=== PATIENT | female | born 1940 | race Caucasian/White ===

== ENCOUNTER 2016-11-22 13:36 | Emergency (ER) | payer OTHER ==
[2016-11-22] MEDS ORDERED: SODIUM CHLORIDE 1,000 ML IV STA (13:47)
[2016-11-22] MEDS ORDERED: HEMOQUE TEST 1 EACH EACH ONE (14:01)
--- NOTE | 2016-11-22 14:07 | PDOC ---
[id number]XuGKPZGHMZKDOWPUK5NICMQxNMUOx3cOLKEvJcEAQAJqJ RsZQAAeJxztooJKMpPL0 dNaJdjQFgwSG6IHZuZpbhYroP3NuRQwohsAb0kMt3GbaFH1/ PVu9MQF6tRA22Lwo9GQUhMYVeHZFqePRZqJdB1NoF6TwIcMKi6HVChUASpIHMCdr8OFXHKKjEhOc3cDK SBVBoGIYRRk1N5h3HyYDJJySbjiK6Lj7dMY4foORF8vlNGhLW1EJOGILUteqzAbKCIObPJPBRUjMthrb 2ilQGYHwEA277wt6YJZwiKGwwu + 98gsNfFTEEcR0DLtbISHcrFEbU049jWTdpvbzaQyVjFClNFXNoR4LF7HESqJZawByzsXHYNSEJUJZQYC ORzTOpOp1VIRaudGhyHgMqS2jtIUyWp +QNOf2NOhr10vmLqsBmqQZYNWC5O4msTvHS5/o8oaRyZwdGWzoYDohkkM+ EtTecWlRFjseakm9jVvG1GEP8SF0FWnKUlGFxIusHKlUFcWGHZFcC1sWDFNBYu3f+zmxQj67y/ uLSGxA53uqFJsEAijs2tovVGyQ3X03hsrXSI6n6zazejj4aD3idezYkVlWG6MBiX4dp7tpNuXN5EEar7 j9T1AcD +LAqYcl5LHAM8u8HmVYIYEcnuZk3m1B+ncbDnzOmxkCMEw/U1xP6qUiAGfv3yBDqr0LS5bsz0UqQ3W2H +pclsQ+6UgNZJYIEElzJk4hcrwGT5I+ecxYYMloCk+aV29kOXwSOgdRq5pOJuEpMr+ w0fcTA7IhzwRsWzxUPCf66rjwOJ3X6XAgzeUY6fiMvGXqVoeZYHltZFbxyhIEjCjyBCyA2QHdqImpw6v CQpIIF0dK0xk9kl +maBJcS8N2cafftqWxQxvsulN6550WyhrgB/9cRF1AKOzHLlXyLob0T+ P9PyNP3sNyHnpSIvYwXIVV1TUEsyNAZLCqHVN2ICUaOVUzat2Cv/QzI9LKADTJeJBsUdImUM 11/22/16 14:10 Medical Decision Making - Medical Decision Making 11/22/16 14:06 A portion of this note was documented by scribe services under my direction. I have reviewed the details of the note, within reason, and agree with the documentation with the following case summary and management plan written by me. 76-year-old female history of diabetes sent in for evaluation of hyperglycemia. Rule out DKA, rule out infection. *DC/Admit/Observation/Transfer Diagnosis at time of Disposition: Diabetes mellitus Qualifiers: Diabetes mellitus type: type 1 Diabetes mellitus complication status: with hyperglycemia Qualified Code(s): E10.65 - Type 1 diabetes mellitus with hyperglycemia - Discharge Dispostion Disposition: HOME Condition at time of disposition: Stable - Referrals Referrals: Regine Pickard MD [Primary Care Provider] - - Patient Instructions Printed Discharge Instructions: DI for Hyperglycemia -- Adult Additional Instructions: Check fingerstick every 2 hours tonight before going to bed, if continue to rise return to emergency department All and make appointment to see before the weekend No sugar products, balanced healthy diet, with lots of fluids
--- NOTE | 2016-11-22 14:13 | PDOC ---
History of Present Illness - General Chief Complaint: Blood Sugar Problem Stated Complaint: Blood Sugar Problem Time Seen by Provider: 11/22/16 13:41 History Source: Patient, Family Exam Limitations: No Limitations - History of Present Illness Initial Comments: 11/22/16 14:08 Patient brought in by ambulance from office. went in today for her routine check, found to have a fingerstick of greater than 500. Was given 10 units of Humalog and swollen in the doctor's office. Sugar was rechecked and noted to be greater than 450 therefore given an additional 10 units of subcutaneous Humalog and swollen. Patient was then transported to this emergency department for further evaluation. Patient states when she is hyperglycemic generally becomes anxious but feels more tired currently. States has been afebrile although has suffered from a URI as has all of the rest of her family this past week. Has runny nose, and moist cough with minimal phlegm production. Patient suffers from COPD and chronic cardiac illness but denies worsening or exacerbation of her asthma/COPD and has not needed extra respiratory treatments. Patient denies chest pain or palpitations, no worsened shortness of breath. Has been using regular Robitussin copiously as stressed of family has been using wdez-ddi-aciozum cough medicines. Also states secondary to her antihypertensive medications that include diuretics has been more frequent with urination and including some incontinence however denies pain or burning and does not feel has a UTI. Bowels are working normally. Daughter is at bedside, has home health attendant that works with her most every day who states patient's behavior and health status other than high sugars is primarily her baseline Timing/Duration: getting worse Severity: moderate, severe Modifying Factors: improves with: medication Associated Symptoms: reports: malaise, weakness. denies: fever/chills, nausea/ vomiting Past History - Travel Traveled outside of the country in the last 30 days: No Close contact w/someone who was outside of country & ill: No - Past Medical History Allergies/Adverse Reactions: Allergies Allergy/AdvReac Type Severity Reaction Status Date / Time No Known Allergies Allergy Verified 11/22/16 13:54 Home Medications: Ambulatory Orders Albuterol Sulfate Inhaler - [Ventolin HFA Inhaler -] 1 - 2 inh PO Q4H PRN Aspirin 81 mg PO DAILY 09/24/13 Budesonide/Formeterol Fumarate [SYMBICORT 160/4.5mcg -] 2 inh PO BID 09/24/13 Ergocalciferol [Drisdol -] 50,000 unit PO Q7D@1000 09/24/13 Fenofibrate [Lipofen] 105 mg PO DAILY 09/24/13 Furosemide [Lasix -] 40 mg PO BID 09/24/13 Losartan Potassium [Cozaar -] 25 mg PO DAILY 09/24/13 Mometasone Furoate [Nasonex] 1 - 2 inh NS DAILY 09/24/13 Niacin [Niaspan] 750 mg PO DAILY 09/24/13 Rosuvastatin [Crestor -] 40 mg PO DAILY 09/24/13 Sitagliptin Phosphate [Januvia] 100 mg PO DAILY 09/24/13 Tiotropium [place] [Spiriva] 2 inh PO DAILY 09/24/13 Vitamin B Complex 1 each PO DAILY 09/24/13 Diltiazem Cd [Cardizem Cd -] 120 mg PO DAILY #30 cap.cd.24h 02/16/15 Albuterol Sulfate Inhaler - [Ventolin Hfa Inhaler -] 1 - 2 inh PO QID 11/22/16 Clopidogrel Bisulfate [Plavix -] 75 mg PO DAILY 11/22/16 Guaifenesin [Mucinex] 600 mg PO DAILY 11/22/16 Halobetasol Prop 0.05% Tp Crm [Ultravate (Nf)] 1 applic TP DAILY 11/22/16 Insulin Glargine,Hum.rec.anlog [Toulavonne Solostliudmila] 80 unit SQ HS 11/22/16 Insulin Lispro [Humalog] 0 unit SQ DAILY 11/22/16 Insulin NPH Hum/Reg Insulin Hm [Novolin 70-30 100 Unit/ml Vial] 60 unit SQ BID 11/22/16 Omeprazole/Sodium Bicarbonate [Zegerid 20mg (RX)] 1 each PO DAILY 11/22/16 Ranolazine [Ranexa -] 1,000 mg PO BID 11/22/16 Roflumilast [Daliresp] 500 mcg PO DAILY 11/22/16 Anemia: No Asthma: Yes Cancer: No Cardiac Disorders: Yes CVA: No COPD: Yes CHF: Yes Dementia: No Diabetes: Yes GI Disorders: Yes (GERD) Disorders: No HTN: Yes Hypercholesterolemia: Yes Liver Disease: No Seizures: No Thyroid Disease: No - Surgical History Abdominal Surgery: No Cardiac Surgery: Yes (4 CARDIAC STENTS) Cholecystectomy: Yes Lung Surgery: No Neurologic Surgery: No Orthopedic Surgery: No - Immunization History Immunization Up to Date: Yes - Psycho/Social/Smoking Cessation Hx Anxiety: No Suicidal Ideation: No Smoking History: Never smoked Have you smoked in the past 12 months: No Hx Alcohol Use: No Drug/Substance Use Hx: No Substance Use Type: None Hx Substance Use Treatment: No Review of Systems - Review of Systems Able to Perform ROS?: Yes Is the patient limited Kyrgyz proficient: Yes Constitutional: Yes: Symptoms Reported, See HPI, Malaise. No: Chills, Fever, Loss of Appetite HEENTM: Yes: See HPI. No: Symptoms Reported Respiratory: Yes: See HPI, SOB with Exertion. No: Symptoms reported, Cough, Shortness of Breath, Wheezing Cardiac (ROS): No: Symptoms Reported : Yes: See HPI. No: Symptoms Reported, Burning Integumentary: Yes: Symptoms Reported Neurological: Yes: Symptoms reported, See HPI, Headache. No: Numbness, Paresthesia Psychiatric: No: Anxiety All Other Systems: Reviewed and Negative *Physical Exam - Physical Exam General Appearance: Yes: Appropriately Dressed, Apparent Distress HEENT: positive: ANEESH, Normal ENT Inspection, TMs Normal, Pharynx Normal Neck: positive: Supple. negative: Tender, Lymphadenopathy (R), Lymphadenopathy (L) Respiratory/Chest: positive: Lungs Clear (but diminished bilaterally, worse on the left than the right with poor inspiratory effort). negative: Normal Breath Sounds Cardiovascular: positive: Regular Rhythm, Regular Rate Gastrointestinal/Abdominal: positive: Normal Bowel Sounds, Soft, Protuberent. negative: Tender, Distended, Guarding, Rebound, Tenderness Musculoskeletal: positive: Normal Inspection Extremity: positive: Normal Capillary Refill Integumentary: positive: Normal Color, Dry, Warm, Pale Neurologic: positive: chemist steroids II-XII NML intact, Fully Oriented, Alert, Normal Mood/ Affect, Normal Response, Motor Strength 5/5 (pleasant, cooperative,) ED Treatment Course - LABORATORY CBC & Chemistry Diagram: 11/22/16 14:10 11/22/16 14:10 - RADIOLOGY Radiology Studies Ordered: Category Date Time Status CHEST X-RAY PORTABLE* [RAD] Stat Radiology 11/22/16 14:06 Ordered Medical Decision Making - Medical Decision Making 11/22/16 14:13 Hyperglycemia, per EMS and medicated with 20 units of subcutaneous Humalog insulins at office. Will obtain labs, frequent fingersticks to monitor for drop 14:30 repeat fingerstick 483 15:30 2 repeat fingersticks descending, with RBS 386. 16:30 acetone negative, lactic acid negative, pH and chemistries, anion gap 9- other labs within normal limits other than random blood sugar elevated. Will complete fluid bolus of 500 mL recheck fingerstick and if all well will discharge patient home with follow-up with tomorrow. Daughter reports later that sister had given a large box of chocolates that mother had eaten a significant portion of. 11/23/16 17:15 11/23/16 17:15 *DC/Admit/Observation/Transfer Diagnosis at time of Disposition: Diabetes mellitus Qualifiers: Diabetes mellitus type: type 1 Diabetes mellitus complication status: with hyperglycemia Qualified Code(s): E10.65 - Type 1 diabetes mellitus with hyperglycemia - Discharge Dispostion Disposition: HOME Condition at time of disposition: Stable Admit: No - Referrals Referrals: Regine Pickard MD [Primary Care Provider] - - Patient Instructions Printed Discharge Instructions: DI for Hyperglycemia -- Adult Additional Instructions: Check fingerstick every 2 hours tonight before going to bed, if continue to rise return to emergency department All and make appointment to see before the weekend No sugar products, balanced healthy diet, with lots of fluids
[2016-11-22 14:17] VITALS: BMI 34.4
[2016-11-22 14:20] LABS: VENOUS PH 7.39 (7.32-7.42)
[2016-11-22 14:23] LABS: VENOUS BLOOD GAS HCO3 29.2 meq/L (19-25)
[2016-11-22 14:27] LABS: BASOPHIL 0.6 % (0-2.0); EOSINOPHIL 1.2 % (0-4.5); MCH 22.1 pg (25.7-33.7); MCHC 31.7 g/dl (32.0-36.0); MEAN CELL VOLUME 69.6 fl (80-96); MEAN PLT VOLUME 8.3 fl (7.5-11.1); NEUTROPHILS 54.9 % (42.8-82.8); PLATELET COUNT 193 K/MM3 (134-434); RDW 15.1 % (11.6-15.6); WHITE BLOOD COUNT 6.6 K/mm3 (4.0-10.0)
[2016-11-22 14:43] LABS: INR 1.1 (0.82-1.09); PROTHROMBIN TIME (PATIENT) 12.1 SEC (9.98-11.88)
[2016-11-22 14:46] LABS: ALBUMIN 3.3 g/dl (3.4-5.0); ANION GAP 9 (8-16); BILIRUBIN,TOTAL 0.5 mg/dL (0.2-1.0); CALCIUM 9.1 mg/dL (8.5-10.1); CO2 30 mmol/L (21-32); SGOT/AST 12 U/L (15-37); SGPT/ALT 22 U/L (12-78); TOT PROT 6.8 g/dl (6.4-8.2)
[2016-11-22 14:46] LABS: URINE APPEARANCE CLEAR; URINE BILIRUBIN NEGATIVE (NEGATIVE); URINE BLOOD NEGATIVE (NEGATIVE); URINE COLOR STRAW; URINE GLUCOSE (UA) 3+ (NEGATIVE); URINE KETONE NEGATIVE (NEGATIVE); URINE LEUK ESTERASE NEGATIVE (NEGATIVE); URINE NITRITE NEGATIVE (NEGATIVE); URINE PROTEIN NEGATIVE (NEGATIVE); URINE UROBILINOGEN NEGATIVE E.U./dl (0.2-1.0)
[2016-11-22 14:49] LABS: ALK PHOS 97 U/L (45-117); TROPONIN I < 0.02 ng/ml (0.00-0.05)
[2016-11-22 14:52] LABS: GLUCOSE,RANDOM 368 mg/dL (74-106)
[2016-11-22 17:04] VITALS: BP 106/60; PULSE 84; TEMP 98.3
--- NOTE | 2016-11-23 16:14 | EKG ---
Test Reason : Blood Pressure : / mmHG Vent. Rate : 083 BPM Atrial Rate : 083 BPM P-R Int : 172 ms QRS Dur : 080 ms QT Int : 364 ms P-R-T Axes : 048 018 053 degrees QTc Int : 427 ms NORMAL SINUS RHYTHM LOW VOLTAGE QRS BORDERLINE ECG WHEN COMPARED WITH ECG OF 14-FEB-2015 17:01, NO SIGNIFICANT CHANGE WAS FOUND Confirmed by HALLEY BACK MD ([id number]) on 11/23/2016 4:14:18 PM Referred By: Confirmed By:HALLEY BACK MD
== END 2016-11-22 17:05 | disposition home or self-care (01) ==
LOC: JER 13:36
PROC: 3E0337Z Introduction of Electrolytic and Water Balance Substance into Peripheral Vein, Percutaneous Approach (ICD-10-PCS; principal; 2016-11-22)
DX: E10.65 Type 1 diabetes mellitus with hyperglycemia (principal); J45.909 Unspecified asthma, uncomplicated; J44.9 Chronic obstructive pulmonary disease, unspecified; I50.9 Heart failure, unspecified; K21.9 Gastro-esophageal reflux disease without esophagitis; Z95.5 Presence of coronary angioplasty implant and graft; E78.00 Pure hypercholesterolemia, unspecified; I10 Essential (primary) hypertension; Z79.4 Long term (current) use of insulin; Z79.82 Long term (current) use of aspirin
CPT/HCPCS: 36415; 71010-TC; 80053; 81003; 82009; 82550; 82553; 82803; 83605; 83690; 84484; 85025; 85610; 87086; 93005; 93010; 96360; 99284-25

== ENCOUNTER 2017-10-13 08:33 | Inpatient (IN) | payer OTHER ==
[2017-10-13 08:43] VITALS: BMI 35.2
--- NOTE | 2017-10-13 09:15 | PDOC ---
History of Present Illness - General Chief Complaint: Respiratory Stated Complaint: RESPIRATORY Time Seen by Provider: 10/13/17 09:13 - History of Present Illness Initial Comments: 10/13/17 09:37 The patient is a 77 year old female with a history of COPD, Asthma, DM, HTN, CAD , AL s/p 3 stents who presents for evaluation of SOB. The patient is accompanied by family who assist in providing the history. They report a 2-3 day history of worsening SOB with associated non-productive cough prompting their presentation to the ED for evaluation. The also note some chills yesterday evening, but deny any fevers. The patient did receive her flu shot this year. They deny sick contacts, chest pain, abdominal pain, nausea, vomiting, or changes with urination or bowel movements. Past History - Past Medical History Allergies/Adverse Reactions: Allergies Allergy/AdvReac Type Severity Reaction Status Date / Time No Known Allergies Allergy Verified 10/13/17 08:43 Home Medications: Ambulatory Orders Albuterol Sulfate Inhaler - [Ventolin HFA Inhaler -] 1 - 2 inh PO Q4H PRN Aspirin 81 mg PO DAILY 09/24/13 Budesonide/Formeterol Fumarate [SYMBICORT 160/4.5mcg -] 2 inh PO BID 09/24/13 Ergocalciferol [Vitamin D2] 50,000 unit PO Q7D@1000 09/24/13 Fenofibrate [Lipofen] 105 mg PO DAILY 09/24/13 Furosemide [Lasix -] 40 mg PO BID 09/24/13 Losartan Potassium [Cozaar -] 25 mg PO DAILY 09/24/13 Mometasone Furoate [Nasonex] 1 - 2 inh NS DAILY 09/24/13 Niacin [Niaspan] 750 mg PO DAILY 09/24/13 Rosuvastatin [Crestor -] 40 mg PO DAILY 09/24/13 Sitagliptin Phosphate [Januvia] 100 mg PO DAILY 09/24/13 Tiotropium [place] [Spiriva] 2 inh PO DAILY 09/24/13 Diltiazem Cd [Cardizem Cd -] 120 mg PO DAILY #30 cap.cd.24h 02/16/15 Clopidogrel Bisulfate [Plavix -] 75 mg PO DAILY 11/22/16 Insulin Glargine,Hum.rec.anlog [[place]jeo Solostar] 80 unit SQ HS 11/22/16 Ranolazine [Ranexa -] 1,000 mg PO BID 11/22/16 Roflumilast [Daliresp] 500 mcg PO DAILY 11/22/16 Dulaglutide [Trulicity] 1.5 mg SQ WEEKLY 10/13/17 Guaifenesin [Mucinex] 600 mg PO BID 10/13/17 Metoprolol Succinate [Toprol Xl] 25 mg PO DAILY 10/13/17 Mirabegron [Myrbetriq] 50 mg PO DAILY 10/13/17 Anemia: No Asthma: Yes Cancer: No Cardiac Disorders: Yes CVA: No COPD: Yes CHF: Yes Dementia: No Diabetes: Yes GI Disorders: Yes (GERD) Disorders: No HTN: Yes Hypercholesterolemia: Yes Liver Disease: No Seizures: No Thyroid Disease: No - Surgical History Abdominal Surgery: No Cardiac Surgery: Yes (4 CARDIAC STENTS) Cholecystectomy: Yes Lung Surgery: No Neurologic Surgery: No Orthopedic Surgery: No - Immunization History Immunization Up to Date: Yes - Suicide/Smoking/Psychosocial Hx Smoking History: Never smoked Have you smoked in the past 12 months: No Hx Alcohol Use: No Drug/Substance Use Hx: No Substance Use Type: None Hx Substance Use Treatment: No Review of Systems - Review of Systems Comments:: 10/13/17 09:41 Constitutional: Body aches, chills. No fevers, fatigue, HEENT: No Rhinorrhea, nasal congestion, visual changes Cardiovascular: No chest pain, syncope, palpitations, lightheadedness Respiratory: SOB, cough. No Hemoptysis, Gastrointestinal: No Abdominal pain, Nausea, Vomiting, Constipation, Diarrhea, Melena Genitourinary: No Dysuria, Frequency, Urgency, Hesitancy, Hematuria, Flank pain Musculoskeletal: No Myalgia, arthralgia Skin: No rashes, bruising, pallor Neurologic: No Headache, Dizziness, Numbness, Weakness, or Tingling Psychiatric: No Hallucinations. No SI or HI *Physical Exam - Vital Signs Last Vital Signs Temp Pulse Resp BP Pulse Ox 98.3 F 103 H 20 122/63 99 10/13/17 08:40 10/13/17 08:40 10/13/17 08:40 10/13/17 08:40 10/13/17 08:40 - Physical Exam Comments: 10/13/17 09:42 General Appearance: Nourished. No Apparent Distress HEENT: EOMI, ANEESH. No Pharyngeal Erythema, Tonsillar Exudate, Tonsillar Erythema Neck: No Cervical Lymphadenopathy Respiratory/Chest: Distant breath sounds with expiratory wheezing noted on auscultation. No Crackles, Rales, Rhonchi, Cardiovascular: Regular Rhythm, Regular Rate. No Murmur, Gallops, Rubs Gastrointestinal/Abdominal: Normal Bowel Sounds, Soft. No Guarding, Rebound, Tenderness Musculoskeletal: No CVA Tenderness Extremity: Normal Capillary Refill Integumentary: Normal Color, Dry, Warm Neurologic: Fully Oriented, Alert, Normal Mood/Affect, Normal Response, ED Treatment Course - LABORATORY CBC & Chemistry Diagram: 10/13/17 09:30 10/13/17 09:30 Medical Decision Making - Medical Decision Making 10/13/17 09:43 The patient is a 77 year old female with a history of COPD, Asthma, DM, HTN, CAD , AL s/p 3 stents who presents for evaluation of SOB. Differential includes but is not limited to: Viral syndrome, COPD exacerbation, ACS, pneumonia, infectious, metabolic derangement. Given the patient's physical exam, it is likely her symptoms are due to a COPD exacerbation. However, given her cardiac history we will obtain a cbc, cmp, troponin, bnp, ekg, chest plain film to evaluate for other etiologies. We will treat with prednisone, duoneb, and azithromycin here in the Ed. We will continue to monitor and reassess. 10/13/17 13:29 CBC, cmp, troponin, bnp are unremarkable. Chest plain film and ct chest demonstrate some concerns for pulmonary congestion as read by our radiologist. The patient reports continued symptoms despite treatment here in the ED. We believe the patient requires observation admission for a copd exacerbation and further management. We discussed the case with Dr. Pickard who accepted the patient for admission. *DC/Admit/Observation/Transfer Diagnosis at time of Disposition: COPD exacerbation, Possible CHF - Discharge Dispostion Condition at time of disposition: Guarded Admit: Yes - Referrals Referrals: Esequiel Alexander MD [Primary Care Provider] - - Patient Instructions - Post Discharge Activity
[2017-10-13] MEDS ORDERED: ALBUTEROL SO4 2.5/IPRATROPIUM 0.5 INH SOL 3 ML VIAL.NEB. NEB ONE ×4 (09:23→20:31)
[2017-10-13] MEDS ORDERED: predniSONE 20 MG TABLET (UD) PO ONE (09:31)
[2017-10-13] MEDS ORDERED: AZITHROMYCIN 500 MG TABLET PO ONE (09:32)
[2017-10-13 09:43] LABS: ADD RBC MORPHOLOGY YES; BASO % 0.5 % (0-2.0); EOS % 2.5 % (0-4.5); HEMATOCRIT 39.7 % (32.4-45.2); HEMOGLOBIN 12.4 GM/dL (10.7-15.3); LYMPH % 17.9 % (8-40); MCH 21.5 pg (25.7-33.7); MCHC 31.2 g/dl (32.0-36.0); MEAN CELL VOLUME 68.8 fl (80-96); MEAN PLT VOLUME 7.9 fl (7.5-11.1); MONO % 14.6 % (3.8-10.2); NEUT % 64.5 % (42.8-82.8); PLATELET COUNT 225 K/MM3 (134-434); RBC 5.78 M/mm3 (3.60-5.2); RDW 15.6 % (11.6-15.6); WHITE BLOOD COUNT 6.8 K/mm3 (4.0-10.0)
[2017-10-13] MEDS ORDERED: predniSONE 20 MG TABLET (UD) ONE (09:43)
[2017-10-13] MEDS ORDERED: AZITHROMYCIN 500 MG TABLET ONE (09:43)
--- NOTE | 2017-10-13 09:47 | PDOC ---
Attending Attestation - Resident Resident Name: Kostas Sutton - ED Attending Attestation I have performed the following: I have examined & evaluated the patient, The case was reviewed & discussed with the resident, I agree w/resident's findings & plan, Exceptions are as noted - HPI HPI: 10/13/17 09:41 77 F with h/o COPD/asthma, CAD/[place], HTN, DM, HLD presenting to ER with 3 days of progressively worsening SOB. Pt denies CP but endorses pain in her upper back with coughing. Denies F/C. Denies any new leg swelling. Denies orthopnea. Pt states that this feels like a COPD flare. She used an albuterol nebulizer this morning with minimal relief. Pt denies recent travel/immobilization. No h/o DVT/ PE. - Physicial Exam PE: 10/13/17 09:43 "GENERAL: Awake, alert, and fully oriented, in no acute distress HEAD: No signs of trauma EYES: PERRLA, EOMI, sclera anicteric, conjunctiva clear ENT: Auricles normal inspection, hearing grossly normal, nares patent, oropharynx clear without exudates. Moist mucosa NECK: Nontender, no stepoffs, Normal ROM, supple, no lymphadenopathy, JVD, or masses LUNGS: + mild expiratory wheezes, no rales or rhonchi HEART: Regular rate and rhythm, normal S1 and S2, no murmurs, rubs or gallops ABDOMEN: Soft, nontender, normoactive bowel sounds. No guarding, no rebound. No masses EXTREMITIES: +2 PE BLE. No clubbing or cyanosis. No cords, erythema, or tenderness NEUROLOGICAL: Cranial nerves II through XII intact. 5/5 strength and sensation in all extremities, Normal speech, normal gait SKIN: Warm, Dry, normal turgor, no rashes or lesions noted. " - Medical Decision Making 10/13/17 09:48 77 F with COPD, CAD presenting with 3 days of SOB, found to have wheezes on exam. Consistent with COPD/asthma exacerbation. Will also evaluate for CHF given lower extremity edema on exam. Consider ACS as well given CAD. PE unlikely , as pt with no asymmetric leg swelling, no h/o DVT/PE, no recent immobilization. - Labs, trop, BNP - CXR - EKG - Nebs, steroids, azithromycin
[2017-10-13 10:49] LABS: ALBUMIN 3.3 g/dl (3.4-5.0); ANION GAP 6 (8-16); BLOOD UREA NITROGEN 11 mg/dL (7-18); CALCIUM 8.5 mg/dL (8.5-10.1); CHLORIDE 104 mmol/L (98-107); CO2 28 mmol/L (21-32); GLUCOSE,RANDOM 115 mg/dL (74-106); POTASSIUM 4.2 mmol/L (3.5-5.1); SGOT/AST 21 U/L (15-37); SGPT/ALT 27 U/L (12-78); SODIUM 138 mmol/L (136-145); TOT PROT 7.1 g/dl (6.4-8.2)
[2017-10-13 10:52] LABS: ALK PHOS 104 U/L (45-117)
[2017-10-13] MEDS ORDERED: FUROSEMIDE 40 MG/4 ML INJECTABLE VIAL IVPUSH ONE (12:51)
[2017-10-13] MEDS ORDERED: FUROSEMIDE 40 MG/4 ML INJECTABLE VIAL ONE (12:56)
[2017-10-13 13:26] LABS: PLATELET ESTIMATE ADEQUATE
[2017-10-13] MEDS ORDERED: INSULIN (NOVOLOG) ASPART 100 UNITS/ML 10ML VIAL SQ ONE (18:00)
[2017-10-13] MEDS ORDERED: ACETAMINOPHEN 325 MG TABLET (FP) PO PRN (19:14)
[2017-10-13] MEDS: CEFTRIAXONE 1 G/50 ML PREMIX 50 ML IVPB SCH (21:01)
[2017-10-13] MEDS: methylPREDNISolone NA SUCC 40 MG/1 ML VIAL IVPUSH SCH (22:17)
[2017-10-13] MEDS: RANOLAZINE E.R. 500 MG TABLET (FP) PO SCH (22:17)
[2017-10-13] MEDS: HEPARIN NA (PORCINE) 5,000 UNITS/ML 1ML VIAL SQ SCH (22:17)
[2017-10-13] MEDS: guaiFENesin 600 MG TABLET.ER (FP) PO SCH (22:18)
[2017-10-13] MEDS: INSULIN SLIDING SCALE (NOVOLOG) 1 VIAL SQ SCH (22:19)
[2017-10-13] MEDS ORDERED: INSULIN (NOVOLOG) ASPART 100 UNITS/ML 10ML VIAL ONE (22:19)
[2017-10-13] MEDS: BUDESONIDE/FORMETEROL FUMARATE 160/4.5 mcg INHALER IH SCH (22:57)
[2017-10-14] MEDS: methylPREDNISolone NA SUCC 40 MG/1 ML VIAL IVPUSH SCH ×4 (03:05→21:24)
[2017-10-14] MEDS: ALBUTEROL SO4 2.5/IPRATROPIUM 0.5 INH SOL 3 ML VIAL.NEB. NEB SCH ×4 (06:00→23:06)
[2017-10-14] MEDS: INSULIN SLIDING SCALE (NOVOLOG) 1 VIAL SQ SCH ×4 (06:18→21:36)
[2017-10-14] MEDS: FUROSEMIDE 40 MG/4 ML INJECTABLE VIAL IVPUSH SCH ×2 (06:19→14:45)
[2017-10-14 08:15] LABS: BASO % 0.1 % (0-2.0); HEMATOCRIT 39.1 % (32.4-45.2); HEMOGLOBIN 12.2 GM/dL (10.7-15.3); LYMPH % 10.6 % (8-40); MCH 21.5 pg (25.7-33.7); MCHC 31.3 g/dl (32.0-36.0); MEAN CELL VOLUME 68.7 fl (80-96); MEAN PLT VOLUME 8.1 fl (7.5-11.1); MONO % 1.9 % (3.8-10.2); NEUT % 87.4 % (42.8-82.8); PLATELET COUNT 249 K/MM3 (134-434); RBC 5.69 M/mm3 (3.60-5.2); RDW 16.1 % (11.6-15.6); WHITE BLOOD COUNT 7.7 K/mm3 (4.0-10.0)
[2017-10-14 08:56] LABS: ALBUMIN 3.3 g/dl (3.4-5.0); ANION GAP 7 (8-16); BLOOD UREA NITROGEN 19 mg/dL (7-18); CALCIUM 8.9 mg/dL (8.5-10.1); CHLORIDE 103 mmol/L (98-107); CO2 28 mmol/L (21-32); GLUCOSE,RANDOM 193 mg/dL (74-106); POTASSIUM 4.5 mmol/L (3.5-5.1); SODIUM 138 mmol/L (136-145)
[2017-10-14 09:03] LABS: ALK PHOS 104 U/L (45-117); BILIRUBIN,TOTAL 0.6 mg/dL (0.2-1.0); CREATININE 1.1 mg/dL (0.55-1.02); N-TERMINAL BNP 146.56 pg/ml (5-450); SGOT/AST 17 U/L (15-37); SGPT/ALT 29 U/L (12-78); TOT PROT 7.3 g/dl (6.4-8.2)
[2017-10-14] MEDS ORDERED: ROSUVASTATIN CA 10 MG TABLET (FP) ONE (09:51)
[2017-10-14] MEDS ORDERED: PT OWN MED DRAWER 7, Y5N ONE ×2 (09:51→21:14)
[2017-10-14] MEDS: RANOLAZINE E.R. 500 MG TABLET (FP) PO SCH ×2 (09:58→21:23)
[2017-10-14] MEDS: METOPROLOL SUCCINATE 25 MG TAB.SR.24H (FP) PO SCH (09:58)
[2017-10-14] MEDS: CLOPIDOGREL BISULFATE 75 MG TABLET (FP) PO SCH (09:58)
[2017-10-14] MEDS: guaiFENesin 600 MG TABLET.ER (FP) PO SCH ×2 (09:58→21:24)
[2017-10-14] MEDS: ASPIRIN 81 MG CHEWABLE TABLETS PO SCH (09:58)
[2017-10-14] MEDS: ROFLUMILAST 500 MCG TABLET PO SCH (09:58)
[2017-10-14] MEDS: LOSARTAN POTASSIUM 25 MG TABLET PO SCH (09:58)
[2017-10-14] MEDS: BUDESONIDE/FORMETEROL FUMARATE 160/4.5 mcg INHALER IH SCH ×2 (09:59→21:36)
[2017-10-14] MEDS: HEPARIN NA (PORCINE) 5,000 UNITS/ML 1ML VIAL SQ SCH ×2 (09:59→21:25)
[2017-10-14] MEDS: ROSUVASTATIN CA 20 MG TABLET (FP) PO SCH (09:59)
--- NOTE | 2017-10-14 11:26 | HP ---
Admitting History and Physical - Admission History of Present Illness: 77 F with h/o COPD/asthma, CAD/[place], HTN, DM, HLD presenting to ER with 3 days of progressively worsening SOB. Pt denies CP but endorses pain in her upper back with coughing. Denies F/C. Denies any new leg swelling. Denies orthopnea. Pt states that this feels like a COPD flare. She used an albuterol nebulizer this morning with minimal relief. Pt denies recent travel/immobilization. No h/o DVT/ PE. - Past Medical History Cardiovascular: Yes: CAD, CHF, HTN, Hyperlipdemia Pulmonary: Yes: COPD Gastrointestinal: Yes: GERD ...: No Endocrine: Yes: Diabetes Mellitus - Past Surgical History Past Surgical History: Yes: Cholecystectomy, Stent - Smoking History Smoking history: Never smoked Have you smoked in the past 12 months: No - Alcohol/Substance Use Hx Alcohol Use: No - Social History ADL: Independent (in ADLs, needs assistance with iADLs) Home Medications - Allergies Allergies/Adverse Reactions: Allergies Allergy/AdvReac Type Severity Reaction Status Date / Time No Known Allergies Allergy Verified 10/13/17 08:43 - Home Medications Home Medications: Ambulatory Orders Albuterol Sulfate Inhaler - [Ventolin HFA Inhaler -] 1 - 2 inh PO Q4H PRN Aspirin 81 mg PO DAILY 09/24/13 Budesonide/Formeterol Fumarate [SYMBICORT 160/4.5mcg -] 2 inh PO BID 09/24/13 Ergocalciferol [Vitamin D2] 50,000 unit PO Q7D@1000 09/24/13 Fenofibrate [Lipofen] 105 mg PO DAILY 09/24/13 Furosemide [Lasix -] 40 mg PO BID 09/24/13 Losartan Potassium [Cozaar -] 25 mg PO DAILY 09/24/13 Mometasone Furoate [Nasonex] 1 - 2 inh NS DAILY 09/24/13 Niacin [Niaspan] 750 mg PO DAILY 09/24/13 Rosuvastatin [Crestor -] 40 mg PO DAILY 09/24/13 Sitagliptin Phosphate [Januvia] 100 mg PO DAILY 09/24/13 Tiotropium [place] [Spiriva] 2 inh PO DAILY 09/24/13 Diltiazem Cd [Cardizem Cd -] 120 mg PO DAILY #30 cap.cd.24h 02/16/15 Clopidogrel Bisulfate [Plavix -] 75 mg PO DAILY 11/22/16 Insulin Glargine,Hum.rec.anlog [Toulavonne Solostar] 80 unit SQ HS 11/22/16 Ranolazine [Ranexa -] 1,000 mg PO BID 11/22/16 Roflumilast [Daliresp] 500 mcg PO DAILY 11/22/16 Dulaglutide [Trulicity] 1.5 mg SQ WEEKLY 10/13/17 Guaifenesin [Mucinex] 600 mg PO BID 10/13/17 Metoprolol Succinate [Toprol Xl] 25 mg PO DAILY 10/13/17 Mirabegron [Myrbetriq] 50 mg PO DAILY 10/13/17 Family Disease History - Family Disease History Family Disease History: CA: Father (bone cancer), Mother (COPD) Review of Systems - Review of Systems Cardiovascular: reports: Edema, Shortness of Breath. denies: Chest Pain Respiratory: reports: Cough, SOB on Exertion, Wheezing Gastrointestinal: denies: Abdominal Pain Physical Examination Vital Signs: Vital Signs Temperature 97.9 F 10/14/17 05:54 Pulse Rate 92 H 10/14/17 05:54 Respiratory Rate 18 10/14/17 05:54 Blood Pressure 122/60 10/14/17 05:54 O2 Sat by Pulse Oximetry (%) 94 L 10/13/17 20:19 Cardiovascular: Yes: S1, S2 Respiratory: Yes: On Nasal O2, Rales, Rhonchi Gastrointestinal: Yes: Normal Bowel Sounds, Soft Edema: Yes Labs: CBC, BMP 10/14/17 07:30 10/14/17 07:30 Imaging - Results Cat Scan: Report Reviewed Problem List - Problems (1) Pneumonia Assessment/Plan: IV ABX FOLLOW SATS PULM CONSULT Code(s): J18.9 - PNEUMONIA, UNSPECIFIED ORGANISM (2) COPD exacerbation Assessment/Plan: NEBS IV STEROIDS O2 PULM CONSULT Code(s): J44.1 - CHRONIC OBSTRUCTIVE PULMONARY DISEASE W (ACUTE) EXACERBATION (3) Diabetes mellitus Assessment/Plan: BGM SS ENDO Code(s): E11.9 - TYPE 2 DIABETES MELLITUS WITHOUT COMPLICATIONS Qualifiers: Diabetes mellitus type: type 1 Diabetes mellitus complication status: with hyperglycemia Qualified Code(s): E10.65 - Type 1 diabetes mellitus with hyperglycemia (4) Possible CHF Assessment/Plan: IV LASIX MONITOR LABS
--- NOTE | 2017-10-14 11:35 | EKG ---
Test Reason : Blood Pressure : / mmHG Vent. Rate : 096 BPM Atrial Rate : 096 BPM P-R Int : 174 ms QRS Dur : 080 ms QT Int : 360 ms P-R-T Axes : 044 003 056 degrees QTc Int : 454 ms NORMAL SINUS RHYTHM POOR R WAVE PROGRESSION NONSPECIFIC ST ABNORMALITY WHEN COMPARED WITH ECG OF 22-NOV-2016 13:56, NO SIGNIFICANT CHANGE WAS FOUND Confirmed by GEOFF MILLER MD ([id number]) on 10/14/2017 11:35:25 AM Referred By: Confirmed By:GEOFF MILLER MD
--- NOTE | 2017-10-14 13:05 | PN ---
Progress Note (short form) - Note Progress Note: PULMONARY CONSULTATION DICTATED 10/14/17 IMP COPD EXACERBATION URI ASHD S/P VT,STENTS HTN DM HLD GERD ?PULMONARY HTN PLAN IV STEROIDS INHALED BRONCHODILATORS O2 ABX SPUTUM C+S ECHO PFTS OUTPATIENT DR MEYER Problem List - Problems (1) COPD exacerbation Code(s): J44.1 - CHRONIC OBSTRUCTIVE PULMONARY DISEASE W (ACUTE) EXACERBATION (2) Acute bronchitis Code(s): J20.9 - ACUTE BRONCHITIS, UNSPECIFIED (3) COPD - Chronic obstructive lung disease Code(s): J44.9 - CHRONIC OBSTRUCTIVE PULMONARY DISEASE, UNSPECIFIED (4) Diabetes mellitus Code(s): E11.9 - TYPE 2 DIABETES MELLITUS WITHOUT COMPLICATIONS Qualifiers: Diabetes mellitus type: type 1 Diabetes mellitus complication status: with hyperglycemia Qualified Code(s): E10.65 - Type 1 diabetes mellitus with hyperglycemia (5) GERD (gastroesophageal reflux disease) Code(s): K21.9 - GASTRO-ESOPHAGEAL REFLUX DISEASE WITHOUT ESOPHAGITIS (6) HTN (hypertension) Code(s): I10 - ESSENTIAL (PRIMARY) HYPERTENSION (7) Hyperlipemia Code(s): E78.5 - HYPERLIPIDEMIA, UNSPECIFIED (8) ASHD (arteriosclerotic heart disease) Code(s): I25.10 - ATHSCL HEART DISEASE OF [place] CORONARY ARTERY W/O ANG PCTRS
--- NOTE | 2017-10-14 14:24 | CONS ---
DATE OF CONSULTATION: 10/14/2017 REFERRING PHYSICIAN: Regine Pickard MD The patient is a 77-year-old female with a past medical history that includes ASHD, status post NH, congestive heart failure, status post stent, hypertension, hyperlipidemia, COPD, GERD, diabetes, history of cholecystectomy, hyperlipidemia, admitted to [facility] with complaints of 3-day history of increasing shortness of breath, cough and sputum production. The patient denied any fevers, chills, nausea, vomiting, diaphoresis. She states that she had chest pain associated with cough as well as pain in the upper back when coughing. She denies any hemoptysis. She states that she uses an inhaler at home, which offered minimal improvement. She presented to the emergency room with above. In the ER, she was treated with IV steroids, inhaled bronchodilators, transferred to the floor for further management. She has a history of tobacco use, quit years ago. There is no history of occupational exposure to chemicals or fumes. There is no history of DVT or PE in the past. There is no history of fevers, weight loss, or night sweats. Past medical history includes ASHD, status post NH, status post stent, COPD, hypertension, hyperlipidemia, GERD, diabetes. SOCIAL HISTORY: Born in [place], moved [place] the [place] 49 years ago, history of tobacco use, quit 30 years ago. REVIEW OF SYSTEMS: Positive shortness of breath, positive cough, positive wheezing. Positive chest pain with cough. No fever, no chills, no hemoptysis, no abdominal pain, no lower extremity edema. Current medications include Symbicort 160/4.5, Solu-Medrol 40 q.6, Tylenol, Cozaar, heparin, DuoNeb, Toprol, Cardizem CD, Ranexa, ceftriaxone, Mucinex, Crestor, NovoLog, Lasix, aspirin, Plavix, and Daliresp. PHYSICAL EXAMINATION: General: The patient is an obese female, awake, alert, currently in no acute distress. Vital Signs: She is currently afebrile. Blood pressure is 122/60. Respiratory rate is 20. O2 saturation is 96% on 2 L. HEENT: Normocephalic, atraumatic. Neck: Supple. Heart: Regular, S1, S2. Chest: Diffuse bilateral expiratory and inspiratory wheezes. Abdomen: Soft. Bowel sounds are positive. Extremities: No cyanosis, edema. LABORATORY DATA: WBC is 7.7, hemoglobin 12.2, hematocrit 39.1, platelet count 249,000. BUN 19, creatinine 1.1. Chest CT: No acute infiltrates and/or effusions. There was thickening in interstitial septa, there are mild atelectatic changes at the right lung base. IMPRESSION: 1. Acute exacerbation of chronic obstructive pulmonary disease, likely secondary to upper respiratory infection. 2. History of hypertension. 3. Arteriosclerotic heart disease, status post myocardial infarction, status post stents. 4. History of congestive heart failure. 5. Diabetes. 6. Gastroesophageal reflux disease. PLAN: IV steroids, inhaled bronchodilators, supplemental O2, antibiotics, obtain follow up chest x-ray, monitor peak flow, PFT as outpatient. Obtain echo to rule out possible pulmonary hypertension. JAYLAN MEYER M.D. [id number]
[2017-10-14] MEDS: CEFTRIAXONE 1 G/50 ML PREMIX 50 ML IVPB SCH (21:26)
--- NOTE | 2017-10-15 01:05 | CONSULT ---
Consult Consult Specialty:: endocrine Referred by:: dr.annabi leal Reason for Consultation:: diabetes mellitus/ insulin resistant - History of Present Illness Chief Complaint: difficulty breathing and high sugars History of Present Illness: 77 year old female with a history of COPD, Asthma, DM, HTN, CAD, MO s/p 3 stents who presents for evaluation of SOB. The patient is accompanied by family who assist in providing the history. They report a 2-3 day history of worsening SOB with associated non-productive cough wheezing and higher blood sugars despite taking her usual insulin doses, - Past Medical History Cardio/Vascular: Yes: CAD, CHF, HTN, Hyperlipdemia Pulmonary: Yes: COPD Gastrointestinal: Yes: GERD ...: No Endocrine: Yes: Diabetes Mellitus - Past Surgical History Past Surgical History: Yes: Cholecystectomy, Stent - Alcohol/Substance Use Hx Alcohol Use: No - Smoking History Smoking history: Never smoked Have you smoked in the past 12 months: No - Social History ADL: Independent (in ADLs, needs assistance with iADLs) Home Medications - Allergies Allergies/Adverse Reactions: Allergies Allergy/AdvReac Type Severity Reaction Status Date / Time No Known Allergies Allergy Verified 10/13/17 08:43 - Home Medications Home Medications: Ambulatory Orders Albuterol Sulfate Inhaler - [Ventolin HFA Inhaler -] 1 - 2 inh PO Q4H PRN Aspirin 81 mg PO DAILY 09/24/13 Budesonide/Formeterol Fumarate [SYMBICORT 160/4.5mcg -] 2 inh PO BID 09/24/13 Ergocalciferol [Vitamin D2] 50,000 unit PO Q7D@1000 09/24/13 Fenofibrate [Lipofen] 105 mg PO DAILY 09/24/13 Furosemide [Lasix -] 40 mg PO BID 09/24/13 Losartan Potassium [Cozaar -] 25 mg PO DAILY 09/24/13 Mometasone Furoate [Nasonex] 1 - 2 inh NS DAILY 09/24/13 Niacin [Niaspan] 750 mg PO DAILY 09/24/13 Rosuvastatin [Crestor -] 40 mg PO DAILY 09/24/13 Sitagliptin Phosphate [Januvia] 100 mg PO DAILY 09/24/13 Tiotropium [place] [Spiriva] 2 inh PO DAILY 09/24/13 Diltiazem Cd [Cardizem Cd -] 120 mg PO DAILY #30 cap.cd.24h 02/16/15 Clopidogrel Bisulfate [Plavix -] 75 mg PO DAILY 11/22/16 Insulin Glargine,Hum.rec.anlog [[place]o Solostar] 80 unit SQ HS 11/22/16 Ranolazine [Ranexa -] 1,000 mg PO BID 11/22/16 Roflumilast [Daliresp] 500 mcg PO DAILY 11/22/16 Dulaglutide [Trulicity] 1.5 mg SQ WEEKLY 10/13/17 Guaifenesin [Mucinex] 600 mg PO BID 10/13/17 Metoprolol Succinate [Toprol Xl] 25 mg PO DAILY 10/13/17 Mirabegron [Myrbetriq] 50 mg PO DAILY 10/13/17 Family Disease History - Family Disease History Family Disease History: [place]: Father (bone cancer), Mother (COPD) Review of Systems - Review of Systems Constitutional: reports: Loss of Appetite Eyes: reports: Blurred Vision HENT: reports: No Symptoms Neck: reports: No Symptoms Cardiovascular: reports: Palpitations, Shortness of Breath Respiratory: reports: Exercise Intolerance, SOB on Exertion Gastrointestinal: reports: No Symptoms, Constipation Musculoskeletal: reports: Extremity Pain, Muscle Pain, Muscle Cramps Neurological: reports: Weakness Endocrine: reports: Increased Hunger, Unexplained Weight Gain Physical Exam Vital Signs: Vital Signs Temperature 97.6 F 10/14/17 22:31 Pulse Rate 89 10/14/17 22:31 Respiratory Rate 19 10/14/17 22:31 Blood Pressure 115/57 10/14/17 22:31 O2 Sat by Pulse Oximetry (%) 93 L 10/14/17 21:00 Constitutional: Yes: Anxious Eyes: Yes: EOM Intact HENT: Yes: Normocephalic Neck: Yes: Trachea Midline Cardiovascular: Yes: Tachycardia Respiratory: Yes: Rhonchi, SOB, Tachypnea, Wheezes Gastrointestinal: Yes: Normal Bowel Sounds ...Rectal Exam: Yes: Deferred Renal/: Yes: WNL Musculoskeletal: Yes: Back Pain Edema: Yes Neurological: Yes: Alert, Oriented Labs: CBC, BMP 10/14/17 07:30 10/14/17 07:30 Problem List - Problems (1) ASHD (arteriosclerotic heart disease) Code(s): I25.10 - ATHSCL HEART DISEASE OF [place] CORONARY ARTERY W/O ANG PCTRS (2) COPD exacerbation Code(s): J44.1 - CHRONIC OBSTRUCTIVE PULMONARY DISEASE W (ACUTE) EXACERBATION (3) Pneumonia Code(s): J18.9 - PNEUMONIA, UNSPECIFIED ORGANISM (4) Acute bronchitis Code(s): J20.9 - ACUTE BRONCHITIS, UNSPECIFIED (5) Asthma attack Code(s): J45.901 - UNSPECIFIED ASTHMA WITH (ACUTE) EXACERBATION (6) COPD - Chronic obstructive lung disease Code(s): J44.9 - CHRONIC OBSTRUCTIVE PULMONARY DISEASE, UNSPECIFIED (7) Coronary arteriosclerosis Code(s): I25.10 - ATHSCL HEART DISEASE OF [place] CORONARY ARTERY W/O ANG PCTRS (8) Diabetes mellitus Code(s): E11.9 - TYPE 2 DIABETES MELLITUS WITHOUT COMPLICATIONS Qualifiers: Diabetes mellitus type: type 1 Diabetes mellitus complication status: with hyperglycemia Qualified Code(s): E10.65 - Type 1 diabetes mellitus with hyperglycemia Assessment/Plan Current Active Problems ASHD (arteriosclerotic heart disease) (Acute) COPD exacerbation (Acute) Pneumonia (Acute) diabetes mellitus hyperglycemia morbid obesity Abnormal Lab Results 10/14/17 10/14/17 07:30 07:30 RBC 5.69 H MCV 68.7 L MCH 21.5 L MCHC 31.3 L RDW 16.1 H Neutrophils % 87.4 H D Monocytes % 1.9 L D Anion Gap 7 L BUN 19 H D Creatinine 1.1 H Random Glucose 193 H D Albumin 3.3 L Laboratory Results - last 24 hr 10/14/17 10/14/17 10/14/17 05:00 07:30 07:30 WBC 7.7 RBC 5.69 H Hgb 12.2 Hct 39.1 MCV 68.7 L MCH 21.5 L MCHC 31.3 L RDW 16.1 H Plt Count 249 MPV 8.1 Neutrophils % 87.4 H D Lymphocytes % 10.6 D Monocytes % 1.9 L D Eosinophils % 0.0 D Basophils % 0.1 Sodium 138 Potassium 4.5 Chloride 103 Carbon Dioxide 28 Anion Gap 7 L BUN 19 H D Creatinine 1.1 H Creat Clearance w eGFR 47.91 POC Glucometer 190 Random Glucose 193 H D Calcium 8.9 Total Bilirubin 0.6 D AST 17 ALT 29 Alkaline Phosphatase 104 Troponin I < 0.02 B-Natriuretic Peptide 146.56 Total Protein 7.3 Albumin 3.3 L 10/14/17 10/14/17 10/14/17 11:42 17:12 21:22 WBC RBC Hgb Hct MCV MCH MCHC RDW Plt Count MPV Neutrophils % Lymphocytes % Monocytes % Eosinophils % Basophils % Sodium Potassium Chloride Carbon Dioxide Anion Gap BUN Creatinine Creat Clearance w eGFR POC Glucometer 246 250 278 Random Glucose Calcium Total Bilirubin AST ALT Alkaline Phosphatase Troponin I B-Natriuretic Peptide Total Protein Albumin plan: Current Medications Generic Name Dose Route Start Last Admin Trade Name Freq PRN Reason Stop Dose Admin Acetaminophen 650 mg 10/13/17 19:14 Tylenol - PO Q4H PRN FEVER OR PAIN Albuterol/Ipratropium 1 amp 10/14/17 00:00 10/14/17 23:06 Duoneb - NEB 1 amp QIDR FERNANDO Administration Aspirin 81 mg 10/14/17 10:00 10/14/17 09:58 Asa - PO 81 mg DAILY FERNANDO Administration Budesonide/Formoterol Fumarate 2 puff 10/13/17 22:00 10/14/17 21:36 Symbicort 160/4.5mcg - IH 2 puff BID FERNANDO Administration Clopidogrel Bisulfate 75 mg 10/14/17 10:00 10/14/17 09:58 Plavix - PO 75 mg DAILY FERNANDO Administration Diltiazem HCl 120 mg 10/14/17 10:00 10/14/17 09:58 Cardizem Cd - PO 120 mg DAILY FERNANDO Administration Furosemide 40 mg 10/14/17 06:00 10/14/17 14:45 Lasix Injection - IVPUSH 40 mg BID@0600,1400 FERNANDO Administration Guaifenesin 600 mg 10/13/17 22:00 10/14/17 21:24 Mucinex - PO 600 mg BID FERNANDO Administration Heparin Sodium (Porcine) 5,000 unit 10/13/17 22:00 10/14/17 21:25 Heparin - SQ 5,000 unit BID FERNANDO Administration CEFTRIAXONE 1 G/50 ML PREMIX 50 mls @ 100 mls/hr 10/13/17 21:00 10/14/17 21: 26 Ceftriaxone 1 Gm-D5w Bag IVPB 100 mls/hr Q24H FERNANDO Administration Insulin Aspart 1 vial 10/13/17 22:00 10/14/17 21:36 Novolog Vial Sliding Scale - SQ 5 units ACHS FERNANDO Administration Protocol Insulin Aspart 25 units 10/15/17 07:00 Novolog Mix 70/30 Vial SQ BIDAC [facility] Losartan Potassium 25 mg 10/14/17 10:00 10/14/17 09:58 Cozaar - PO 25 mg DAILY FERNANDO Administration Methylprednisolone Sodium Succinate 40 mg 10/13/17 21:00 10/14/17 21:24 Solu-Medrol - IVPUSH 40 mg Q6H-IV FERNANDO Administration Metoprolol Succinate 25 mg 10/14/17 10:00 10/14/17 09:58 Toprol Xl - PO 25 mg DAILY FERNANDO Administration Ranolazine 1,000 mg 10/13/17 22:00 10/14/17 21:23 Ranexa - PO 1,000 mg BID FERNANDO Administration Roflumilast 500 mcg 10/14/17 10:00 10/14/17 09:58 Daliresp - PO 500 mcg DAILY FERNANDO Administration Rosuvastatin Calcium 40 mg 10/14/17 10:00 10/14/17 09:59 Crestor - PO 40 mg DAILY FERNANDO Administration plan: novolog 70/30 bid as this may decrease postprandial hyperglycemia continue bgm qid will follow bgm as doses will need tapering
[2017-10-15] MEDS: methylPREDNISolone NA SUCC 40 MG/1 ML VIAL IVPUSH SCH ×3 (02:28→18:34)
[2017-10-15] MEDS: INSULIN SLIDING SCALE (NOVOLOG) 1 VIAL SQ SCH ×4 (06:08→22:29)
[2017-10-15] MEDS: FUROSEMIDE 40 MG/4 ML INJECTABLE VIAL IVPUSH SCH ×2 (06:08→14:55)
[2017-10-15] MEDS: INSULIN (NOVOLOG MIX 70/30) 100 UNITS/ML MDV SQ SCH ×2 (06:08→16:33)
[2017-10-15] MEDS: ALBUTEROL SO4 2.5/IPRATROPIUM 0.5 INH SOL 3 ML VIAL.NEB. NEB SCH ×3 (06:15→17:05)
[2017-10-15 07:33] LABS: BASO % 0.1 % (0-2.0); HEMATOCRIT 40.2 % (32.4-45.2); HEMOGLOBIN 12.4 GM/dL (10.7-15.3); LYMPH % 9.6 % (8-40); MCH 21.3 pg (25.7-33.7); MCHC 30.9 g/dl (32.0-36.0); MEAN CELL VOLUME 68.8 fl (80-96); MEAN PLT VOLUME 8.4 fl (7.5-11.1); MONO % 2.6 % (3.8-10.2); NEUT % 87.7 % (42.8-82.8); PLATELET COUNT 295 K/MM3 (134-434); RBC 5.84 M/mm3 (3.60-5.2); RDW 15.5 % (11.6-15.6)
[2017-10-15 08:13] LABS: ALBUMIN 3.3 g/dl (3.4-5.0); ANION GAP 10 (8-16); BILIRUBIN,TOTAL 0.6 mg/dL (0.2-1.0); BLOOD UREA NITROGEN 27 mg/dL (7-18); CALCIUM 9.1 mg/dL (8.5-10.1); CHLORIDE 99 mmol/L (98-107); CO2 27 mmol/L (21-32); CREATININE 1.1 mg/dL (0.55-1.02); GLUCOSE,RANDOM 268 mg/dL (74-106); POTASSIUM 4.4 mmol/L (3.5-5.1); SGOT/AST 13 U/L (15-37); SGPT/ALT 25 U/L (12-78); SODIUM 136 mmol/L (136-145); TOT PROT 7.4 g/dl (6.4-8.2)
[2017-10-15 08:14] LABS: ALK PHOS 103 U/L (45-117)
[2017-10-15] MEDS ORDERED: ROSUVASTATIN CA 10 MG TABLET (FP) ONE (09:17)
[2017-10-15] MEDS ORDERED: PT OWN MED DRAWER 7, Y5N ONE ×2 (09:18→22:20)
[2017-10-15] MEDS: ROSUVASTATIN CA 20 MG TABLET (FP) PO SCH (09:23)
[2017-10-15] MEDS: ROFLUMILAST 500 MCG TABLET PO SCH (09:23)
[2017-10-15] MEDS: guaiFENesin 600 MG TABLET.ER (FP) PO SCH ×2 (09:24→22:55)
[2017-10-15] MEDS: CLOPIDOGREL BISULFATE 75 MG TABLET (FP) PO SCH (09:24)
[2017-10-15] MEDS: LOSARTAN POTASSIUM 25 MG TABLET PO SCH (09:24)
[2017-10-15] MEDS: ASPIRIN 81 MG CHEWABLE TABLETS PO SCH (09:24)
[2017-10-15] MEDS: METOPROLOL SUCCINATE 25 MG TAB.SR.24H (FP) PO SCH (09:24)
[2017-10-15] MEDS: BUDESONIDE/FORMETEROL FUMARATE 160/4.5 mcg INHALER IH SCH ×2 (09:24→22:26)
[2017-10-15] MEDS: HEPARIN NA (PORCINE) 5,000 UNITS/ML 1ML VIAL SQ SCH ×2 (09:25→22:26)
[2017-10-15] MEDS: RANOLAZINE E.R. 500 MG TABLET (FP) PO SCH (10:00)
--- NOTE | 2017-10-15 11:39 | PN ---
Progress Note, Physician Chief Complaint: CHF,SOB History of Present Illness: breathing improved mild diffuse wheezing and cough - Current Medication List Current Medications: Active Medications Acetaminophen (Tylenol -) 650 mg PO Q4H PRN PRN Reason: FEVER OR PAIN Albuterol/Ipratropium (Duoneb -) 1 amp NEB QIDR [facility] Last Admin: 10/15/17 11:32 Dose: 1 amp Aspirin (Asa -) 81 mg PO DAILY [facility] Last Admin: 10/15/17 09:24 Dose: 81 mg Budesonide/Formoterol Fumarate (Symbicort 160/4.5mcg -) 2 puff IH BID [facility] Last Admin: 10/15/17 09:24 Dose: 2 puff Clopidogrel Bisulfate (Plavix -) 75 mg PO DAILY [facility] Last Admin: 10/15/17 09:24 Dose: 75 mg Diltiazem HCl (Cardizem Cd -) 120 mg PO DAILY [facility] Last Admin: 10/15/17 09:24 Dose: 120 mg Furosemide (Lasix Injection -) 40 mg IVPUSH BID@0600,1400 [facility] Last Admin: 10/15/17 06:08 Dose: 40 mg Guaifenesin (Mucinex -) 600 mg PO BID [facility] Last Admin: 10/15/17 09:24 Dose: 600 mg Heparin Sodium (Porcine) (Heparin -) 5,000 unit SQ BID [facility] Last Admin: 10/15/17 09:25 Dose: 5,000 unit CEFTRIAXONE 1 G/50 ML PREMIX (Ceftriaxone 1 Gm-D5w Bag) 50 mls @ 100 mls/hr IVPB Q24H [facility] Last Admin: 10/14/17 21:26 Dose: 100 mls/hr Insulin Aspart (Novolog Vial Sliding Scale -) 1 vial SQ ACHS [facility] PRN Reason: Protocol Last Admin: 10/15/17 11:36 Dose: 5 units Insulin Aspart (Novolog Mix 70/30 Vial) 25 units SQ BIDAC [facility] Last Admin: 10/15/17 06:08 Dose: 25 units Losartan Potassium (Cozaar -) 25 mg PO DAILY [facility] Last Admin: 10/15/17 09:24 Dose: 25 mg Methylprednisolone Sodium Succinate (Solu-Medrol -) 40 mg IVPUSH Q6H-IV [facility] Last Admin: 10/15/17 09:22 Dose: 40 mg Metoprolol Succinate (Toprol Xl -) 25 mg PO DAILY [facility] Last Admin: 10/15/17 09:24 Dose: 25 mg Ranolazine (Ranexa -) 1,000 mg PO BID [facility] Roflumilast (Daliresp -) 500 mcg PO DAILY [facility] Last Admin: 10/15/17 09:23 Dose: 500 mcg Rosuvastatin Calcium (Crestor -) 40 mg PO DAILY [facility] Last Admin: 10/15/17 09:23 Dose: 40 mg - Objective Vital Signs: Vital Signs Temperature 98.5 F 10/15/17 08:00 Pulse Rate 83 10/15/17 11:38 Respiratory Rate 18 10/15/17 08:00 Blood Pressure 113/61 10/15/17 08:00 O2 Sat by Pulse Oximetry (%) 92 L 10/15/17 11:38 Constitutional: Yes: Well Nourished, No Distress, Calm Cardiovascular: Yes: Regular Rate and Rhythm Respiratory: Yes: Rhonchi (diffuse), Wheezes (diffuse) Breast(s): Yes: WNL Musculoskeletal: Yes: WNL Peripheral Pulses WNL: Yes Neurological: Yes: Alert, Oriented Psychiatric: Yes: Alert, Oriented Labs: CBC, BMP 10/15/17 07:00 10/15/17 07:00 Problem List - Problems (1) ASHD (arteriosclerotic heart disease) Assessment/Plan: -on plavix, aspirin, BB and statin Code(s): I25.10 - ATHSCL HEART DISEASE OF [place] CORONARY ARTERY W/O ANG PCTRS (2) COPD exacerbation Assessment/Plan: -nasal o2 -bronchodilators -iv steroids -IV abx -pulmonary consult appreciated Code(s): J44.1 - CHRONIC OBSTRUCTIVE PULMONARY DISEASE W (ACUTE) EXACERBATION (3) Acute bronchitis Code(s): J20.9 - ACUTE BRONCHITIS, UNSPECIFIED (4) Diabetes mellitus Assessment/Plan: -diabetic diet -insulin -endocrinology consult -A1c Code(s): E11.9 - TYPE 2 DIABETES MELLITUS WITHOUT COMPLICATIONS Qualifiers: Diabetes mellitus type: type 1 Diabetes mellitus complication status: with hyperglycemia Qualified Code(s): E10.65 - Type 1 diabetes mellitus with hyperglycemia Assessment/Plan see problem list
[2017-10-15] MEDS: RANOLAZINE E.R. 1,000 MG TABLET (FP) PO SCH ×2 (12:01→22:26)
--- NOTE | 2017-10-15 12:39 | EKG ---
Test Reason : Blood Pressure : / mmHG Vent. Rate : 092 BPM Atrial Rate : 092 BPM P-R Int : 188 ms QRS Dur : 088 ms QT Int : 360 ms P-R-T Axes : 054 014 064 degrees QTc Int : 445 ms NORMAL SINUS RHYTHM NORMAL ECG WHEN COMPARED WITH ECG OF 13-OCT-2017 09:45, NO SIGNIFICANT CHANGE WAS FOUND Confirmed by JOSE GAO MD ([id number]) on 10/15/2017 12:39:34 PM Referred By: Derrick BERGER Confirmed By:JOSE GAO MD
--- NOTE | 2017-10-15 13:23 | PN ---
Progress Note (short form) - Note Progress Note: PULMONARY Breathing slightly improved from yesterday. +cough with white sputum and wheezing. Last Vital Signs Temp Pulse Resp BP Pulse Ox 98.5 F 83 18 113/61 92 L 10/15/17 08:00 10/15/17 11:38 10/15/17 08:00 10/15/17 08:00 10/15/17 11:38 Gen: NAD at rest Heart: RRR Lung: scattered rhonchi, wheezes Abd: soft, nontender Ext: no edema CBC, BMP 10/15/17 07:00 10/15/17 07:00 Active Medications Acetaminophen (Tylenol -) 650 mg PO Q4H PRN PRN Reason: FEVER OR PAIN Albuterol/Ipratropium (Duoneb -) 1 amp NEB QIDR [facility] Last Admin: 10/15/17 11:32 Dose: 1 amp Aspirin (Asa -) 81 mg PO DAILY [facility] Last Admin: 10/15/17 09:24 Dose: 81 mg Budesonide/Formoterol Fumarate (Symbicort 160/4.5mcg -) 2 puff IH BID [facility] Last Admin: 10/15/17 09:24 Dose: 2 puff Clopidogrel Bisulfate (Plavix -) 75 mg PO DAILY [facility] Last Admin: 10/15/17 09:24 Dose: 75 mg Diltiazem HCl (Cardizem Cd -) 120 mg PO DAILY [facility] Last Admin: 10/15/17 09:24 Dose: 120 mg Furosemide (Lasix Injection -) 40 mg IVPUSH BID@0600,1400 [facility] Last Admin: 10/15/17 06:08 Dose: 40 mg Guaifenesin (Mucinex -) 600 mg PO BID [facility] Last Admin: 10/15/17 09:24 Dose: 600 mg Heparin Sodium (Porcine) (Heparin -) 5,000 unit SQ BID [facility] Last Admin: 10/15/17 09:25 Dose: 5,000 unit CEFTRIAXONE 1 G/50 ML PREMIX (Ceftriaxone 1 Gm-D5w Bag) 50 mls @ 100 mls/hr IVPB Q24H [facility] Last Admin: 10/14/17 21:26 Dose: 100 mls/hr Insulin Aspart (Novolog Vial Sliding Scale -) 1 vial SQ ACHS [facility] PRN Reason: Protocol Last Admin: 10/15/17 11:36 Dose: 5 units Insulin Aspart (Novolog Mix 70/30 Vial) 25 units SQ BIDAC [facility] Last Admin: 10/15/17 06:08 Dose: 25 units Losartan Potassium (Cozaar -) 25 mg PO DAILY [facility] Last Admin: 10/15/17 09:24 Dose: 25 mg Methylprednisolone Sodium Succinate (Solu-Medrol -) 40 mg IVPUSH Q6H-IV [facility] Last Admin: 10/15/17 09:22 Dose: 40 mg Metoprolol Succinate (Toprol Xl -) 25 mg PO DAILY [facility] Last Admin: 10/15/17 09:24 Dose: 25 mg Ranolazine (Ranexa -) 1,000 mg PO BID [facility] Last Admin: 10/15/17 12:01 Dose: 1,000 mg Roflumilast (Daliresp -) 500 mcg PO DAILY [facility] Last Admin: 10/15/17 09:23 Dose: 500 mcg Rosuvastatin Calcium (Crestor -) 40 mg PO DAILY [facility] Last Admin: 10/15/17 09:23 Dose: 40 mg A/P Acute COPD Exacerbation Upper Respiratory Infection CAD s/p stents HTN DM Hyperlipidemia GERD - can decrease medrol to q8h - inhaled bronchodilators - O2 as needed - empiric antibiotics - f/u cultures - DVT prophylaxis
[2017-10-15] MEDS: CEFTRIAXONE 1 G/50 ML PREMIX 50 ML IVPB SCH (21:26)
[2017-10-15] MEDS ORDERED: RANOLAZINE E.R. 500 MG TABLET (FP) ONE (22:19)
[2017-10-16] MEDS: ALBUTEROL SO4 2.5/IPRATROPIUM 0.5 INH SOL 3 ML VIAL.NEB. NEB SCH ×5 (00:05→20:15)
[2017-10-16] MEDS: methylPREDNISolone NA SUCC 40 MG/1 ML VIAL IVPUSH SCH ×3 (02:06→21:35)
[2017-10-16] MEDS: FUROSEMIDE 40 MG/4 ML INJECTABLE VIAL IVPUSH SCH ×2 (06:08→13:47)
[2017-10-16] MEDS: INSULIN (NOVOLOG MIX 70/30) 100 UNITS/ML MDV SQ SCH ×2 (06:08→17:05)
[2017-10-16] MEDS: INSULIN SLIDING SCALE (NOVOLOG) 1 VIAL SQ SCH ×4 (06:09→21:38)
[2017-10-16] MEDS ORDERED: INSULIN (NOVOLOG) ASPART 100 UNITS/ML 10ML VIAL ONE (06:33)
[2017-10-16 08:41] LABS: BASO % 0.1 % (0-2.0); HEMATOCRIT 41.8 % (32.4-45.2); HEMOGLOBIN 12.7 GM/dL (10.7-15.3); LYMPH % 9.8 % (8-40); MCH 20.9 pg (25.7-33.7); MCHC 30.4 g/dl (32.0-36.0); MEAN CELL VOLUME 68.9 fl (80-96); MEAN PLT VOLUME 8.2 fl (7.5-11.1); MONO % 2.6 % (3.8-10.2); NEUT % 87.5 % (42.8-82.8); PLATELET COUNT 329 K/MM3 (134-434); RBC 6.07 M/mm3 (3.60-5.2); RDW 15.8 % (11.6-15.6); WHITE BLOOD COUNT 12.2 K/mm3 (4.0-10.0)
[2017-10-16 09:10] LABS: ALBUMIN 3.4 g/dl (3.4-5.0); ALK PHOS 95 U/L (45-117); ANION GAP 8 (8-16); BILIRUBIN,TOTAL 0.4 mg/dL (0.2-1.0); BLOOD UREA NITROGEN 33 mg/dL (7-18); CALCIUM 9.1 mg/dL (8.5-10.1); CHLORIDE 98 mmol/L (98-107); CO2 30 mmol/L (21-32); CREATININE 1.2 mg/dL (0.55-1.02); GLUCOSE,RANDOM 211 mg/dL (74-106); POTASSIUM 4.1 mmol/L (3.5-5.1); SGOT/AST 11 U/L (15-37); SGPT/ALT 24 U/L (12-78); SODIUM 136 mmol/L (136-145); TOT PROT 7.3 g/dl (6.4-8.2)
[2017-10-16] MEDS ORDERED: RANOLAZINE E.R. 500 MG TABLET (FP) ONE ×2 (09:38→21:05)
[2017-10-16] MEDS ORDERED: ROSUVASTATIN CA 10 MG TABLET (FP) ONE (09:39)
[2017-10-16] MEDS ORDERED: PT OWN MED DRAWER 7, Y5N ONE (09:40)
[2017-10-16] MEDS: BUDESONIDE/FORMETEROL FUMARATE 160/4.5 mcg INHALER IH SCH ×2 (09:49→21:35)
[2017-10-16] MEDS: HEPARIN NA (PORCINE) 5,000 UNITS/ML 1ML VIAL SQ SCH ×2 (09:50→21:31)
[2017-10-16] MEDS: guaiFENesin 600 MG TABLET.ER (FP) PO SCH ×2 (09:51→21:31)
[2017-10-16] MEDS: RANOLAZINE E.R. 1,000 MG TABLET (FP) PO SCH ×2 (09:51→21:32)
[2017-10-16] MEDS: METOPROLOL SUCCINATE 25 MG TAB.SR.24H (FP) PO SCH (09:52)
[2017-10-16] MEDS: LOSARTAN POTASSIUM 25 MG TABLET PO SCH (09:52)
[2017-10-16] MEDS: ROFLUMILAST 500 MCG TABLET PO SCH (09:52)
[2017-10-16] MEDS: CLOPIDOGREL BISULFATE 75 MG TABLET (FP) PO SCH (09:52)
[2017-10-16] MEDS: ASPIRIN 81 MG CHEWABLE TABLETS PO SCH (09:52)
[2017-10-16] MEDS: ROSUVASTATIN CA 20 MG TABLET (FP) PO SCH (09:52)
--- NOTE | 2017-10-16 09:54 | PN ---
Progress Note, Physician History of Present Illness: better still with a cough - Current Medication List Current Medications: Active Medications Acetaminophen (Tylenol -) 650 mg PO Q4H PRN PRN Reason: FEVER OR PAIN Albuterol/Ipratropium (Duoneb -) 1 amp NEB RQID [facility] Aspirin (Asa -) 81 mg PO DAILY [facility] Last Admin: 10/16/17 09:52 Dose: 81 mg Budesonide/Formoterol Fumarate (Symbicort 160/4.5mcg -) 2 puff IH BID [facility] Last Admin: 10/16/17 09:49 Dose: 2 puff Clopidogrel Bisulfate (Plavix -) 75 mg PO DAILY [facility] Last Admin: 10/16/17 09:52 Dose: 75 mg Diltiazem HCl (Cardizem Cd -) 120 mg PO DAILY [facility] Last Admin: 10/16/17 09:52 Dose: 120 mg Furosemide (Lasix Injection -) 40 mg IVPUSH BID@0600,1400 [facility] Last Admin: 10/16/17 06:08 Dose: 40 mg Guaifenesin (Mucinex -) 600 mg PO BID [facility] Last Admin: 10/16/17 09:51 Dose: 600 mg Heparin Sodium (Porcine) (Heparin -) 5,000 unit SQ BID [facility] Last Admin: 10/16/17 09:50 Dose: 5,000 unit CEFTRIAXONE 1 G/50 ML PREMIX (Ceftriaxone 1 Gm-D5w Bag) 50 mls @ 100 mls/hr IVPB Q24H [facility] Last Admin: 10/15/17 21:26 Dose: 100 mls/hr Insulin Aspart (Novolog Vial Sliding Scale -) 1 vial SQ ACHS [facility] PRN Reason: Protocol Last Admin: 10/16/17 06:09 Dose: 2 units Insulin Aspart (Novolog Mix 70/30 Vial) 25 units SQ BIDAC [facility] Last Admin: 10/16/17 06:08 Dose: 25 units Losartan Potassium (Cozaar -) 25 mg PO DAILY [facility] Last Admin: 10/16/17 09:52 Dose: 25 mg Metoprolol Succinate (Toprol Xl -) 25 mg PO DAILY [facility] Last Admin: 10/16/17 09:52 Dose: 25 mg Ranolazine (Ranexa -) 1,000 mg PO BID [facility] Last Admin: 10/16/17 09:51 Dose: 1,000 mg Roflumilast (Daliresp -) 500 mcg PO DAILY [facility] Last Admin: 10/16/17 09:52 Dose: 500 mcg Rosuvastatin Calcium (Crestor -) 40 mg PO DAILY [facility] Last Admin: 10/16/17 09:52 Dose: 40 mg - Objective Vital Signs: Vital Signs Temperature 97.7 F 10/16/17 08:00 Pulse Rate 77 10/16/17 08:00 Respiratory Rate 18 10/16/17 08:00 Blood Pressure 114/65 10/16/17 08:00 O2 Sat by Pulse Oximetry (%) 92 L 10/15/17 21:00 Cardiovascular: Yes: Regular Rate and Rhythm Respiratory: Yes: Rhonchi, Wheezes Gastrointestinal: Yes: Normal Bowel Sounds, Soft Labs: CBC, BMP 10/16/17 07:45 10/16/17 07:45 Problem List - Problems (1) Pneumonia Assessment/Plan: IV ABX FOLLOW SATS PULM CONSULT Code(s): J18.9 - PNEUMONIA, UNSPECIFIED ORGANISM (2) COPD exacerbation Assessment/Plan: NEBS IV STEROIDS--TAPER O2 PULM CONSULT Code(s): J44.1 - CHRONIC OBSTRUCTIVE PULMONARY DISEASE W (ACUTE) EXACERBATION (3) Diabetes mellitus Assessment/Plan: BGM SS ENDO Code(s): E11.9 - TYPE 2 DIABETES MELLITUS WITHOUT COMPLICATIONS Qualifiers: Diabetes mellitus type: type 1 Diabetes mellitus complication status: with hyperglycemia Qualified Code(s): E10.65 - Type 1 diabetes mellitus with hyperglycemia (4) Possible CHF Assessment/Plan: IV LASIX--CONTINUE IMPROVING MONITOR LABS
--- NOTE | 2017-10-16 16:21 | PN ---
Progress Note (short form) - Note Progress Note: PULMONARY Breathing continues to improve. +cough without sputum and occasional wheezing. Last Vital Signs Temp Pulse Resp BP Pulse Ox 98.1 F 78 18 106/60 94 L 10/16/17 14:57 10/16/17 14:57 10/16/17 08:00 10/16/17 14:57 10/16/17 09:00 Gen: NAD at rest Heart: RRR Lung: scattered rhonchi, wheezes less Abd: soft, nontender Ext: no edema CBC, BMP 10/16/17 07:45 10/16/17 07:45 Active Medications Acetaminophen (Tylenol -) 650 mg PO Q4H PRN PRN Reason: FEVER OR PAIN Albuterol/Ipratropium (Duoneb -) 1 amp NEB RQID [facility] Last Admin: 10/16/17 10:50 Dose: 1 amp Aspirin (Asa -) 81 mg PO DAILY [facility] Last Admin: 10/16/17 09:52 Dose: 81 mg Budesonide/Formoterol Fumarate (Symbicort 160/4.5mcg -) 2 puff IH BID [facility] Last Admin: 10/16/17 09:49 Dose: 2 puff Clopidogrel Bisulfate (Plavix -) 75 mg PO DAILY [facility] Last Admin: 10/16/17 09:52 Dose: 75 mg Diltiazem HCl (Cardizem Cd -) 120 mg PO DAILY [facility] Last Admin: 10/16/17 09:52 Dose: 120 mg Furosemide (Lasix Injection -) 40 mg IVPUSH BID@0600,1400 [facility] Last Admin: 10/16/17 13:47 Dose: 40 mg Guaifenesin (Mucinex -) 600 mg PO BID [facility] Last Admin: 10/16/17 09:51 Dose: 600 mg Heparin Sodium (Porcine) (Heparin -) 5,000 unit SQ BID [facility] Last Admin: 10/16/17 09:50 Dose: 5,000 unit CEFTRIAXONE 1 G/50 ML PREMIX (Ceftriaxone 1 Gm-D5w Bag) 50 mls @ 100 mls/hr IVPB Q24H [facility] Last Admin: 10/15/17 21:26 Dose: 100 mls/hr Insulin Aspart (Novolog Vial Sliding Scale -) 1 vial SQ ACHS [facility] PRN Reason: Protocol Last Admin: 10/16/17 11:38 Dose: 5 units Insulin Aspart (Novolog Mix 70/30 Vial) 25 units SQ BIDAC [facility] Last Admin: 10/16/17 06:08 Dose: 25 units Losartan Potassium (Cozaar -) 25 mg PO DAILY [facility] Last Admin: 10/16/17 09:52 Dose: 25 mg Methylprednisolone Sodium Succinate (Solu-Medrol -) 40 mg IVPUSH BID [facility] Metoprolol Succinate (Toprol Xl -) 25 mg PO DAILY [facility] Last Admin: 10/16/17 09:52 Dose: 25 mg Ranolazine (Ranexa -) 1,000 mg PO BID [facility] Last Admin: 10/16/17 09:51 Dose: 1,000 mg Roflumilast (Daliresp -) 500 mcg PO DAILY [facility] Last Admin: 10/16/17 09:52 Dose: 500 mcg Rosuvastatin Calcium (Crestor -) 40 mg PO DAILY [facility] Last Admin: 10/16/17 09:52 Dose: 40 mg A/P Acute COPD Exacerbation Upper Respiratory Infection CAD s/p stents HTN DM Hyperlipidemia GERD - agree with medrol taper - inhaled bronchodilators - O2 as needed - empiric antibiotics - f/u cultures - DVT prophylaxis
[2017-10-16] MEDS ORDERED: INSULIN (NOVOLOG MIX 70/30) 100 UNITS/ML MDV SQ ONE (17:13)
[2017-10-16] MEDS: CEFTRIAXONE 1 G/50 ML PREMIX 50 ML IVPB SCH (21:31)
[2017-10-17] MEDS: FUROSEMIDE 40 MG/4 ML INJECTABLE VIAL IVPUSH SCH ×2 (05:46→13:46)
[2017-10-17] MEDS: INSULIN SLIDING SCALE (NOVOLOG) 1 VIAL SQ SCH ×4 (06:11→21:37)
[2017-10-17] MEDS: INSULIN (NOVOLOG MIX 70/30) 100 UNITS/ML MDV SQ SCH ×2 (06:11→16:39)
[2017-10-17] MEDS ORDERED: INSULIN (NOVOLOG MIX 70/30) 100 UNITS/ML MDV SQ ONE ×2 (06:54→16:37)
[2017-10-17] MEDS: ALBUTEROL SO4 2.5/IPRATROPIUM 0.5 INH SOL 3 ML VIAL.NEB. NEB SCH ×2 (08:13→12:15)
[2017-10-17 09:07] LABS: ALBUMIN 3.5 g/dl (3.4-5.0); ANION GAP 10 (8-16); BLOOD UREA NITROGEN 37 mg/dL (7-18); CALCIUM 9.3 mg/dL (8.5-10.1); CHLORIDE 94 mmol/L (98-107); CO2 31 mmol/L (21-32); GLUCOSE,RANDOM 227 mg/dL (74-106); POTASSIUM 3.9 mmol/L (3.5-5.1); SGOT/AST 10 U/L (15-37); SGPT/ALT 25 U/L (12-78); SODIUM 135 mmol/L (136-145)
[2017-10-17 09:09] LABS: ALK PHOS 94 U/L (45-117); BILIRUBIN,TOTAL 0.5 mg/dL (0.2-1.0); CREATININE 1.2 mg/dL (0.55-1.02); TOT PROT 7.6 g/dl (6.4-8.2)
[2017-10-17] MEDS ORDERED: PT OWN MED DRAWER 7, Y5N ONE ×2 (09:52→17:16)
[2017-10-17] MEDS: RANOLAZINE E.R. 1,000 MG TABLET (FP) PO SCH ×2 (10:02→21:38)
[2017-10-17] MEDS: methylPREDNISolone NA SUCC 40 MG/1 ML VIAL IVPUSH SCH ×2 (10:02→19:02)
[2017-10-17] MEDS: BUDESONIDE/FORMETEROL FUMARATE 160/4.5 mcg INHALER IH SCH ×2 (10:02→21:37)
[2017-10-17] MEDS: CLOPIDOGREL BISULFATE 75 MG TABLET (FP) PO SCH (10:02)
[2017-10-17] MEDS: ROFLUMILAST 500 MCG TABLET PO SCH (10:03)
[2017-10-17] MEDS: guaiFENesin 600 MG TABLET.ER (FP) PO SCH (10:03)
[2017-10-17] MEDS: ASPIRIN 81 MG CHEWABLE TABLETS PO SCH (10:04)
[2017-10-17] MEDS: METOPROLOL SUCCINATE 25 MG TAB.SR.24H (FP) PO SCH (10:04)
[2017-10-17] MEDS: ROSUVASTATIN CA 20 MG TABLET (FP) PO SCH (10:04)
[2017-10-17] MEDS: HEPARIN NA (PORCINE) 5,000 UNITS/ML 1ML VIAL SQ SCH ×2 (10:05→21:38)
[2017-10-17] MEDS: LOSARTAN POTASSIUM 25 MG TABLET PO SCH (10:05)
[2017-10-17] MEDS: POLYETHYLENE GLYCOL 3350 119 GM BTL PO SCH ×2 (13:46→15:05)
--- NOTE | 2017-10-17 14:45 | PN ---
Progress Note, Physician History of Present Illness: pulmonary alert,oob-chair,still congested - Current Medication List Current Medications: Active Medications Acetaminophen (Tylenol -) 650 mg PO Q4H PRN PRN Reason: FEVER OR PAIN Albuterol/Ipratropium (Duoneb -) 1 amp NEB RQID [facility] Last Admin: 10/17/17 12:15 Dose: 1 amp Aspirin (Asa -) 81 mg PO DAILY [facility] Last Admin: 10/17/17 10:04 Dose: 81 mg Budesonide/Formoterol Fumarate (Symbicort 160/4.5mcg -) 2 puff IH BID [facility] Last Admin: 10/17/17 10:02 Dose: 2 puff Clopidogrel Bisulfate (Plavix -) 75 mg PO DAILY [facility] Last Admin: 10/17/17 10:02 Dose: 75 mg Diltiazem HCl (Cardizem Cd -) 120 mg PO DAILY [facility] Last Admin: 10/17/17 10:03 Dose: 120 mg Furosemide (Lasix Injection -) 40 mg IVPUSH BID@0600,1400 [facility] Last Admin: 10/17/17 13:46 Dose: 40 mg Guaifenesin (Mucinex -) 600 mg PO BID [facility] Last Admin: 10/17/17 10:03 Dose: 600 mg Heparin Sodium (Porcine) (Heparin -) 5,000 unit SQ BID [facility] Last Admin: 10/17/17 10:05 Dose: 5,000 unit CEFTRIAXONE 1 G/50 ML PREMIX (Ceftriaxone 1 Gm-D5w Bag) 50 mls @ 100 mls/hr IVPB Q24H [facility] Last Admin: 10/16/17 21:31 Dose: 100 mls/hr Insulin Aspart (Novolog Mix 70/30 Vial) 37 units SQ BIDAC [facility] Last Admin: 10/17/17 06:11 Dose: 37 units Insulin Aspart (Novolog Vial Sliding Scale -) 1 vial SQ ACHS [facility] PRN Reason: Protocol Last Admin: 10/17/17 11:58 Dose: 4 units Losartan Potassium (Cozaar -) 25 mg PO DAILY [facility] Last Admin: 10/17/17 10:05 Dose: 25 mg Methylprednisolone Sodium Succinate (Solu-Medrol -) 40 mg IVPUSH BID [facility] Last Admin: 10/17/17 10:02 Dose: 40 mg Metoprolol Succinate (Toprol Xl -) 25 mg PO DAILY [facility] Last Admin: 10/17/17 10:04 Dose: 25 mg Polyethylene Glycol (Miralax (For Daily Use) -) 17 gm PO DAILY [facility] Last Admin: 10/17/17 13:46 Dose: 17 gm Polyethylene Glycol (Miralax (For Daily Use) -) 17 gm PO DAILY [facility] Ranolazine (Ranexa -) 1,000 mg PO BID [facility] Last Admin: 10/17/17 10:02 Dose: 1,000 mg Roflumilast (Daliresp -) 500 mcg PO DAILY [facility] Last Admin: 10/17/17 10:03 Dose: 500 mcg Rosuvastatin Calcium (Crestor -) 40 mg PO DAILY [facility] Last Admin: 10/17/17 10:04 Dose: 40 mg - Objective Vital Signs: Vital Signs Temperature 97.6 F 10/17/17 07:52 Pulse Rate 86 10/17/17 08:13 Respiratory Rate 18 10/17/17 07:52 Blood Pressure 119/64 10/17/17 07:52 O2 Sat by Pulse Oximetry (%) 94 L 10/17/17 09:00 Constitutional: Yes: Well Nourished, Calm Eyes: Yes: WNL HENT: Yes: WNL Neck: Yes: WNL Cardiovascular: Yes: Regular Rate and Rhythm, S1, S2 Respiratory: Yes: Rhonchi, Wheezes (diffuse janice wheezes and rhonchi) Gastrointestinal: Yes: Normal Bowel Sounds, Soft Extremities: Yes: WNL Edema: No Labs: CBC, BMP 10/16/17 07:45 10/17/17 07:00 Problem List - Problems (1) COPD exacerbation Code(s): J44.1 - CHRONIC OBSTRUCTIVE PULMONARY DISEASE W (ACUTE) EXACERBATION (2) Acute bronchitis Code(s): J20.9 - ACUTE BRONCHITIS, UNSPECIFIED (3) COPD - Chronic obstructive lung disease Code(s): J44.9 - CHRONIC OBSTRUCTIVE PULMONARY DISEASE, UNSPECIFIED (4) Diabetes mellitus Code(s): E11.9 - TYPE 2 DIABETES MELLITUS WITHOUT COMPLICATIONS Qualifiers: Diabetes mellitus type: type 1 Diabetes mellitus complication status: with hyperglycemia Qualified Code(s): E10.65 - Type 1 diabetes mellitus with hyperglycemia (5) GERD (gastroesophageal reflux disease) Code(s): K21.9 - GASTRO-ESOPHAGEAL REFLUX DISEASE WITHOUT ESOPHAGITIS (6) HTN (hypertension) Code(s): I10 - ESSENTIAL (PRIMARY) HYPERTENSION (7) Hyperlipemia Code(s): E78.5 - HYPERLIPIDEMIA, UNSPECIFIED (8) ASHD (arteriosclerotic heart disease) Code(s): I25.10 - ATHSCL HEART DISEASE OF [place] CORONARY ARTERY W/O ANG PCTRS Assessment/Plan IMP COPD EXACERBATION URI ASHD S/P [place],STENTS HTN DM HLD GERD PLAN IV STEROIDS INCREASE TO Q8H INHALED BRONCHODILATORS SPIRIVA O2 ABX PFTS OUTPATIENT DR MEYER Problem List - Problems (1) COPD exacerbation Code(s): J44.1 - CHRONIC OBSTRUCTIVE PULMONARY DISEASE W (ACUTE) EXACERBATION (2) Acute bronchitis Code(s): J20.9 - ACUTE BRONCHITIS, UNSPECIFIED (3) COPD - Chronic obstructive lung disease Code(s): J44.9 - CHRONIC OBSTRUCTIVE PULMONARY DISEASE, UNSPECIFIED (4) Diabetes mellitus Code(s): E11.9 - TYPE 2 DIABETES MELLITUS WITHOUT COMPLICATIONS Qualifiers: Diabetes mellitus type: type 1 Diabetes mellitus complication status: with hyperglycemia Qualified Code(s): E10.65 - Type 1 diabetes mellitus with hyperglycemia (5) GERD (gastroesophageal reflux disease) Code(s): K21.9 - GASTRO-ESOPHAGEAL REFLUX DISEASE WITHOUT ESOPHAGITIS (6) HTN (hypertension) Code(s): I10 - ESSENTIAL (PRIMARY) HYPERTENSION (7) Hyperlipemia Code(s): E78.5 - HYPERLIPIDEMIA, UNSPECIFIED (8) ASHD (arteriosclerotic heart disease) Code(s): I25.10 - ATHSCL HEART DISEASE OF [place] CORONARY ARTERY W/O ANG PCTRS
[2017-10-17] MEDS ORDERED: ALBUTEROL SO4 2.5/IPRATROPIUM 0.5 INH SOL 3 ML VIAL.NEB. NEB PRN (15:26)
--- NOTE | 2017-10-17 15:29 | PN ---
Progress Note, Physician Chief Complaint: CHF,SOB History of Present Illness: sitting in chair NAD breathing improved mild diffuse wheezing and cough unable to expectorate phlegm - Current Medication List Current Medications: Active Medications Acetaminophen (Tylenol -) 650 mg PO Q4H PRN PRN Reason: FEVER OR PAIN Aspirin (Asa -) 81 mg PO DAILY [facility] Last Admin: 10/17/17 10:04 Dose: 81 mg Budesonide/Formoterol Fumarate (Symbicort 160/4.5mcg -) 2 puff IH BID [facility] Last Admin: 10/17/17 10:02 Dose: 2 puff Clopidogrel Bisulfate (Plavix -) 75 mg PO DAILY [facility] Last Admin: 10/17/17 10:02 Dose: 75 mg Diltiazem HCl (Cardizem Cd -) 120 mg PO DAILY [facility] Last Admin: 10/17/17 10:03 Dose: 120 mg Furosemide (Lasix Injection -) 40 mg IVPUSH BID@0600,1400 [facility] Last Admin: 10/17/17 13:46 Dose: 40 mg Guaifenesin (Diabetic Tussin Dm -) 10 ml PO Q6H PRN PRN Reason: COUGH Heparin Sodium (Porcine) (Heparin -) 5,000 unit SQ BID [facility] Last Admin: 10/17/17 10:05 Dose: 5,000 unit CEFTRIAXONE 1 G/50 ML PREMIX (Ceftriaxone 1 Gm-D5w Bag) 50 mls @ 100 mls/hr IVPB Q24H [facility] Last Admin: 10/16/17 21:31 Dose: 100 mls/hr Insulin Aspart (Novolog Mix 70/30 Vial) 37 units SQ BIDAC [facility] Last Admin: 10/17/17 06:11 Dose: 37 units Insulin Aspart (Novolog Vial Sliding Scale -) 1 vial SQ ACHS [facility] PRN Reason: Protocol Last Admin: 10/17/17 11:58 Dose: 4 units Losartan Potassium (Cozaar -) 25 mg PO DAILY [facility] Last Admin: 10/17/17 10:05 Dose: 25 mg Methylprednisolone Sodium Succinate (Solu-Medrol -) 40 mg IVPUSH Q8H-IV [facility] Metoprolol Succinate (Toprol Xl -) 25 mg PO DAILY [facility] Last Admin: 10/17/17 10:04 Dose: 25 mg Polyethylene Glycol (Miralax (For Daily Use) -) 17 gm PO DAILY [facility] Last Admin: 10/17/17 13:46 Dose: 17 gm Polyethylene Glycol (Miralax (For Daily Use) -) 17 gm PO DAILY [facility] Last Admin: 10/17/17 15:05 Dose: Not Given Ranolazine (Ranexa -) 1,000 mg PO BID [facility] Last Admin: 10/17/17 10:02 Dose: 1,000 mg Roflumilast (Daliresp -) 500 mcg PO DAILY [facility] Last Admin: 10/17/17 10:03 Dose: 500 mcg Rosuvastatin Calcium (Crestor -) 40 mg PO DAILY [facility] Last Admin: 10/17/17 10:04 Dose: 40 mg Tiotropium [place] (Spiriva -) 1 puff IH DAILY [facility] - Objective Vital Signs: Vital Signs Temperature 98.3 F 10/17/17 14:54 Pulse Rate 75 10/17/17 14:54 Respiratory Rate 18 10/17/17 07:52 Blood Pressure 109/57 10/17/17 14:54 O2 Sat by Pulse Oximetry (%) 94 L 10/17/17 09:00 Constitutional: Yes: Well Nourished, No Distress, Calm Cardiovascular: Yes: Regular Rate and Rhythm Respiratory: Yes: Regular, Rhonchi (diffuse), Wheezes (diffuse) Musculoskeletal: Yes: WNL Extremities: Yes: WNL Edema: No Peripheral Pulses WNL: Yes Neurological: Yes: Alert, Oriented Psychiatric: Yes: Alert, Oriented Labs: CBC, BMP 10/16/17 07:45 10/17/17 07:00 Problem List - Problems (1) ASHD (arteriosclerotic heart disease) Assessment/Plan: -on plavix, aspirin, BB and statin Code(s): I25.10 - ATHSCL HEART DISEASE OF [place] CORONARY ARTERY W/O ANG PCTRS (2) COPD exacerbation Assessment/Plan: -nasal o2 -bronchodilators -iv steroids tapering -IV abx -add mucomyst -pulmonary consult appreciated Code(s): J44.1 - CHRONIC OBSTRUCTIVE PULMONARY DISEASE W (ACUTE) EXACERBATION (3) Acute bronchitis Code(s): J20.9 - ACUTE BRONCHITIS, UNSPECIFIED (4) Diabetes mellitus Assessment/Plan: -diabetic diet -insulin -endocrinology consult -A1c Code(s): E11.9 - TYPE 2 DIABETES MELLITUS WITHOUT COMPLICATIONS Qualifiers: Diabetes mellitus type: type 1 Diabetes mellitus complication status: with hyperglycemia Qualified Code(s): E10.65 - Type 1 diabetes mellitus with hyperglycemia Assessment/Plan see problem list physical therapy
[2017-10-17] MEDS: TIOTROPIUM BROMIDE 18 MCG/INH (DEVICE W/ 5 CAPSULES) IH SCH (16:38)
[2017-10-17] MEDS ORDERED: INSULIN (NOVOLOG) ASPART 100 UNITS/ML 10ML VIAL ONE (21:35)
[2017-10-17] MEDS ORDERED: RANOLAZINE E.R. 500 MG TABLET (FP) ONE (21:35)
[2017-10-17] MEDS: CEFTRIAXONE 1 G/50 ML PREMIX 50 ML IVPB SCH (21:38)
[2017-10-17] MEDS ORDERED: ALBUTEROL SO4 0.083% IH SOL 2.5 MG/3 ML VIAL.NEB. NEB SCH (22:00)
[2017-10-17] MEDS ORDERED: ACETYLCYSTEINE 20% 200MG/ML 30 ML VIAL *FOR ORAL / INH USE ONLY NEB SCH (22:00)
[2017-10-18] MEDS: methylPREDNISolone NA SUCC 40 MG/1 ML VIAL IVPUSH SCH (02:43)
[2017-10-18] MEDS ORDERED: INSULIN (NOVOLOG) ASPART 100 UNITS/ML 10ML VIAL ONE ×2 (06:36→21:15)
[2017-10-18] MEDS: INSULIN (NOVOLOG MIX 70/30) 100 UNITS/ML MDV SQ SCH ×2 (06:39→16:14)
[2017-10-18] MEDS: FUROSEMIDE 40 MG/4 ML INJECTABLE VIAL IVPUSH SCH (06:39)
[2017-10-18] MEDS: INSULIN SLIDING SCALE (NOVOLOG) 1 VIAL SQ SCH ×4 (06:40→21:18)
[2017-10-18] MEDS ORDERED: ALBUTEROL SO4 0.083% IH SOL 2.5 MG/3 ML VIAL.NEB. NEB SCH (08:00)
[2017-10-18] MEDS ORDERED: ACETYLCYSTEINE 20% 200MG/ML 30 ML VIAL *FOR ORAL / INH USE ONLY NEB SCH (08:00)
--- NOTE | 2017-10-18 09:04 | PN ---
Progress Note, Physician History of Present Illness: better still with a cough - Current Medication List Current Medications: Active Medications Acetaminophen (Tylenol -) 650 mg PO Q4H PRN PRN Reason: FEVER OR PAIN Acetylcysteine (Mucomyst 20 Oral / Inh Use Only*) 800 mg NEB RBID [facility] Albuterol Sulfate (Ventolin 0.083% Nebulizer Soln -) 1 amp NEB RBID [facility] Albuterol/Ipratropium (Duoneb -) 1 amp NEB Q6H PRN PRN Reason: SHORTNESS OF BREATH Aspirin (Asa -) 81 mg PO DAILY [facility] Last Admin: 10/17/17 10:04 Dose: 81 mg Budesonide/Formoterol Fumarate (Symbicort 160/4.5mcg -) 2 puff IH BID [facility] Last Admin: 10/17/17 21:37 Dose: 2 puff Clopidogrel Bisulfate (Plavix -) 75 mg PO DAILY [facility] Last Admin: 10/17/17 10:02 Dose: 75 mg Diltiazem HCl (Cardizem Cd -) 120 mg PO DAILY [facility] Last Admin: 10/17/17 10:03 Dose: 120 mg Furosemide (Lasix -) 80 mg PO DAILY [facility] Guaifenesin (Diabetic Tussin Dm -) 10 ml PO Q6H PRN PRN Reason: COUGH Heparin Sodium (Porcine) (Heparin -) 5,000 unit SQ BID [facility] Last Admin: 10/17/17 21:38 Dose: 5,000 unit CEFTRIAXONE 1 G/50 ML PREMIX (Ceftriaxone 1 Gm-D5w Bag) 50 mls @ 100 mls/hr IVPB Q24H [facility] Last Admin: 10/17/17 21:38 Dose: 100 mls/hr Insulin Aspart (Novolog Mix 70/30 Vial) 37 units SQ BIDAC [facility] Last Admin: 10/18/17 06:39 Dose: 37 units Insulin Aspart (Novolog Vial Sliding Scale -) 1 vial SQ ACHS [facility] PRN Reason: Protocol Last Admin: 10/18/17 06:40 Dose: 4 units Losartan Potassium (Cozaar -) 25 mg PO DAILY [facility] Last Admin: 10/17/17 10:05 Dose: 25 mg Metoprolol Succinate (Toprol Xl -) 25 mg PO DAILY [facility] Last Admin: 10/17/17 10:04 Dose: 25 mg Polyethylene Glycol (Miralax (For Daily Use) -) 17 gm PO DAILY [facility] Last Admin: 10/17/17 13:46 Dose: 17 gm Polyethylene Glycol (Miralax (For Daily Use) -) 17 gm PO DAILY [facility] Last Admin: 10/17/17 15:05 Dose: Not Given Prednisone (Deltasone -) 40 mg PO BID [facility] Ranolazine (Ranexa -) 1,000 mg PO BID [facility] Last Admin: 10/17/17 21:38 Dose: 1,000 mg Roflumilast (Daliresp -) 500 mcg PO DAILY [facility] Last Admin: 10/17/17 10:03 Dose: 500 mcg Rosuvastatin Calcium (Crestor -) 40 mg PO DAILY [facility] Last Admin: 10/17/17 10:04 Dose: 40 mg Tiotropium [place] (Spiriva -) 1 puff IH DAILY [facility] Last Admin: 10/17/17 16:38 Dose: 1 puff - Objective Vital Signs: Vital Signs Temperature 97.9 F 10/18/17 06:01 Pulse Rate 72 10/18/17 06:01 Respiratory Rate 19 10/18/17 06:01 Blood Pressure 117/65 10/18/17 06:01 O2 Sat by Pulse Oximetry (%) 95 10/17/17 21:00 Cardiovascular: Yes: S1, S2 Respiratory: Yes: Regular, CTA Bilaterally Labs: CBC, BMP 10/16/17 07:45 10/17/17 07:00 Problem List - Problems (1) Pneumonia Assessment/Plan: IV ABX FOLLOW SATS PULM CONSULT Code(s): J18.9 - PNEUMONIA, UNSPECIFIED ORGANISM (2) COPD exacerbation Assessment/Plan: NEBS IV STEROIDS--TAPER O2 PULM CONSULT Code(s): J44.1 - CHRONIC OBSTRUCTIVE PULMONARY DISEASE W (ACUTE) EXACERBATION (3) Diabetes mellitus Assessment/Plan: BGM SS ENDO Code(s): E11.9 - TYPE 2 DIABETES MELLITUS WITHOUT COMPLICATIONS Qualifiers: Diabetes mellitus type: type 1 Diabetes mellitus complication status: with hyperglycemia Qualified Code(s): E10.65 - Type 1 diabetes mellitus with hyperglycemia (4) Possible CHF Assessment/Plan: ACUTE ON CHRONIC DIASTOLIC FAILURE NL EF IV LASIX--IMPROVED IMPROVING MONITOR LABS
[2017-10-18] MEDS ORDERED: RANOLAZINE E.R. 500 MG TABLET (FP) ONE ×2 (09:47→21:14)
[2017-10-18] MEDS ORDERED: ROSUVASTATIN CA 10 MG TABLET (FP) ONE (09:49)
[2017-10-18] MEDS ORDERED: PT OWN MED DRAWER 7, Y5N ONE (09:50)
[2017-10-18] MEDS: LOSARTAN POTASSIUM 25 MG TABLET PO SCH (09:54)
[2017-10-18] MEDS: ASPIRIN 81 MG CHEWABLE TABLETS PO SCH (09:54)
[2017-10-18] MEDS: METOPROLOL SUCCINATE 25 MG TAB.SR.24H (FP) PO SCH (09:54)
[2017-10-18] MEDS: ROSUVASTATIN CA 20 MG TABLET (FP) PO SCH (09:55)
[2017-10-18] MEDS: FUROSEMIDE 40 MG TABLET (FP) PO SCH (09:55)
[2017-10-18] MEDS: CLOPIDOGREL BISULFATE 75 MG TABLET (FP) PO SCH (09:55)
[2017-10-18] MEDS: POLYETHYLENE GLYCOL 3350 119 GM BTL PO SCH ×2 (09:55→10:04)
[2017-10-18] MEDS: predniSONE 20 MG TABLET (UD) PO SCH ×2 (09:55→21:18)
[2017-10-18] MEDS: TIOTROPIUM BROMIDE 18 MCG/INH (DEVICE W/ 5 CAPSULES) IH SCH (09:56)
[2017-10-18] MEDS: ROFLUMILAST 500 MCG TABLET PO SCH (09:56)
[2017-10-18] MEDS: RANOLAZINE E.R. 1,000 MG TABLET (FP) PO SCH ×2 (09:56→21:19)
[2017-10-18] MEDS: HEPARIN NA (PORCINE) 5,000 UNITS/ML 1ML VIAL SQ SCH ×2 (09:56→21:19)
[2017-10-18] MEDS: BUDESONIDE/FORMETEROL FUMARATE 160/4.5 mcg INHALER IH SCH ×2 (09:57→23:12)
[2017-10-18] MEDS: ACETYLCYSTEINE 20% 200MG/ML 4 ML VIAL *FOR ORAL / INH USE ONLY NEB SCH ×2 (11:00→20:00)
[2017-10-18] MEDS: ALBUTEROL SO4 0.083% IH SOL 2.5 MG/3 ML VIAL.NEB. NEB SCH ×2 (11:00→20:00)
--- NOTE | 2017-10-18 11:15 | PN ---
Progress Note (short form) - Note Progress Note: PULMONARY Breathing continues to improve. Reports ambulating with less dyspnea. Minimal cough. Last Vital Signs Temp Pulse Resp BP Pulse Ox 97.9 F 72 19 117/65 95 10/18/17 06:01 10/18/17 06:01 10/18/17 06:01 10/18/17 06:01 10/17/17 21:00 Gen: NAD at rest Heart: RRR Lung: rare rhonchi, wheezes Abd: soft, nontender Ext: no edema CBC, BMP 10/16/17 07:45 10/17/17 07:00 Active Medications Acetaminophen (Tylenol -) 650 mg PO Q4H PRN PRN Reason: FEVER OR PAIN Acetylcysteine (Mucomyst 20 Oral / Inh Use Only*) 800 mg NEB RBID [facility] Albuterol Sulfate (Ventolin 0.083% Nebulizer Soln -) 1 amp NEB RBID [facility] Albuterol/Ipratropium (Duoneb -) 1 amp NEB Q6H PRN PRN Reason: SHORTNESS OF BREATH Aspirin (Asa -) 81 mg PO DAILY [facility] Last Admin: 10/18/17 09:54 Dose: 81 mg Budesonide/Formoterol Fumarate (Symbicort 160/4.5mcg -) 2 puff IH BID [facility] Last Admin: 10/18/17 09:57 Dose: 2 puff Clopidogrel Bisulfate (Plavix -) 75 mg PO DAILY [facility] Last Admin: 10/18/17 09:55 Dose: 75 mg Diltiazem HCl (Cardizem Cd -) 120 mg PO DAILY [facility] Last Admin: 10/18/17 09:54 Dose: 120 mg Furosemide (Lasix -) 80 mg PO DAILY [facility] Last Admin: 10/18/17 09:55 Dose: 80 mg Guaifenesin (Diabetic Tussin Dm -) 10 ml PO Q6H PRN PRN Reason: COUGH Heparin Sodium (Porcine) (Heparin -) 5,000 unit SQ BID [facility] Last Admin: 10/18/17 09:56 Dose: 5,000 unit CEFTRIAXONE 1 G/50 ML PREMIX (Ceftriaxone 1 Gm-D5w Bag) 50 mls @ 100 mls/hr IVPB Q24H [facility] Last Admin: 10/17/17 21:38 Dose: 100 mls/hr Insulin Aspart (Novolog Mix 70/30 Vial) 37 units SQ BIDAC [facility] Last Admin: 10/18/17 06:39 Dose: 37 units Insulin Aspart (Novolog Vial Sliding Scale -) 1 vial SQ ACHS [facility] PRN Reason: Protocol Last Admin: 10/18/17 11:13 Dose: 8 units Losartan Potassium (Cozaar -) 25 mg PO DAILY [facility] Last Admin: 10/18/17 09:54 Dose: 25 mg Metoprolol Succinate (Toprol Xl -) 25 mg PO DAILY [facility] Last Admin: 10/18/17 09:54 Dose: 25 mg Polyethylene Glycol (Miralax (For Daily Use) -) 17 gm PO DAILY [facility] Last Admin: 10/18/17 09:55 Dose: 17 gm Polyethylene Glycol (Miralax (For Daily Use) -) 17 gm PO DAILY [facility] Last Admin: 10/18/17 10:04 Dose: Not Given Prednisone (Deltasone -) 40 mg PO BID [facility] Last Admin: 10/18/17 09:55 Dose: 40 mg Ranolazine (Ranexa -) 1,000 mg PO BID [facility] Last Admin: 10/18/17 09:56 Dose: 1,000 mg Roflumilast (Daliresp -) 500 mcg PO DAILY [facility] Last Admin: 10/18/17 09:56 Dose: 500 mcg Rosuvastatin Calcium (Crestor -) 40 mg PO DAILY [facility] Last Admin: 10/18/17 09:55 Dose: 40 mg Tiotropium [place] (Spiriva -) 1 puff IH DAILY [facility] Last Admin: 10/18/17 09:56 Dose: 1 puff A/P Acute COPD Exacerbation Upper Respiratory Infection CAD s/p stents HTN DM Hyperlipidemia GERD - prednisone taper - inhaled bronchodilators - O2 as needed - complete empiric antibiotics - DVT prophylaxis
[2017-10-18] MEDS: CEFTRIAXONE 1 G/50 ML PREMIX 50 ML IVPB SCH (21:18)
[2017-10-18] MEDS: guaiFENesin/D-M SUGAR-FREE/ACLHOL-FREE 118 ML BOTTLE PO PRN (23:13)
[2017-10-19] MEDS: INSULIN SLIDING SCALE (NOVOLOG) 1 VIAL SQ SCH ×3 (06:13→17:04)
[2017-10-19] MEDS: INSULIN (NOVOLOG MIX 70/30) 100 UNITS/ML MDV SQ SCH ×2 (06:42→17:02)
[2017-10-19] MEDS ORDERED: RANOLAZINE E.R. 500 MG TABLET (FP) ONE (09:15)
[2017-10-19] MEDS ORDERED: ROSUVASTATIN CA 10 MG TABLET (FP) ONE (09:16)
[2017-10-19] MEDS ORDERED: PT OWN MED DRAWER 7, Y5N ONE (09:19)
[2017-10-19] MEDS: ASPIRIN 81 MG CHEWABLE TABLETS PO SCH (09:39)
[2017-10-19] MEDS: CLOPIDOGREL BISULFATE 75 MG TABLET (FP) PO SCH (09:40)
[2017-10-19] MEDS: LOSARTAN POTASSIUM 25 MG TABLET PO SCH (09:40)
[2017-10-19] MEDS: FUROSEMIDE 40 MG TABLET (FP) PO SCH (09:41)
[2017-10-19] MEDS: RANOLAZINE E.R. 1,000 MG TABLET (FP) PO SCH (09:42)
[2017-10-19] MEDS: predniSONE 20 MG TABLET (UD) PO SCH (09:43)
[2017-10-19] MEDS: METOPROLOL SUCCINATE 25 MG TAB.SR.24H (FP) PO SCH (09:43)
[2017-10-19] MEDS: ROSUVASTATIN CA 20 MG TABLET (FP) PO SCH (09:44)
[2017-10-19] MEDS: HEPARIN NA (PORCINE) 5,000 UNITS/ML 1ML VIAL SQ SCH (09:45)
[2017-10-19] MEDS: ROFLUMILAST 500 MCG TABLET PO SCH (09:45)
[2017-10-19] MEDS: POLYETHYLENE GLYCOL 3350 119 GM BTL PO SCH ×2 (09:45→09:46)
[2017-10-19] MEDS: TIOTROPIUM BROMIDE 18 MCG/INH (DEVICE W/ 5 CAPSULES) IH SCH (09:46)
[2017-10-19] MEDS: BUDESONIDE/FORMETEROL FUMARATE 160/4.5 mcg INHALER IH SCH (09:46)
[2017-10-19] MEDS: guaiFENesin/D-M SUGAR-FREE/ACLHOL-FREE 118 ML BOTTLE PO PRN (09:47)
[2017-10-19] MEDS: ACETYLCYSTEINE 20% 200MG/ML 4 ML VIAL *FOR ORAL / INH USE ONLY NEB SCH (10:20)
[2017-10-19] MEDS: ALBUTEROL SO4 0.083% IH SOL 2.5 MG/3 ML VIAL.NEB. NEB SCH (10:20)
--- NOTE | 2017-10-19 10:31 | DS ---
Physical Examination Vital Signs: Vital Signs Temperature 97.4 F L 10/19/17 08:45 Pulse Rate 72 10/19/17 08:45 Respiratory Rate 20 10/19/17 08:45 Blood Pressure 112/63 10/19/17 08:45 O2 Sat by Pulse Oximetry (%) 94 L 10/18/17 20:25 Constitutional: Yes: Well Nourished, No Distress, Calm Cardiovascular: Yes: Regular Rate and Rhythm Respiratory: Yes: Regular Gastrointestinal: Yes: Normal Bowel Sounds, Abdomen, Obese Musculoskeletal: Yes: WNL Extremities: Yes: WNL Edema: No Peripheral Pulses WNL: Yes Neurological: Yes: Alert, Oriented Psychiatric: Yes: Alert, Oriented Labs: CBC, BMP 10/16/17 07:45 10/18/17 17:40 Discharge Summary Reason For Visit: POSSIBLE CHF, OBSTRUCTIVE BRONCHITIS Current Active Problems ASHD (arteriosclerotic heart disease) (Acute) COPD exacerbation (Acute) Pneumonia (Acute) Hospital Course: 77 F with h/o COPD/asthma, CAD/AR, HTN, DM, HLD presenting to ER with 3 days of progressively worsening SOB. Pt denies CP but endorses pain in her upper back with coughing. Denies F/C. Denies any new leg swelling. Denies orthopnea. Pt states that this feels like a COPD flare. She used an albuterol nebulizer this morning with minimal relief. Pt denies recent travel/immobilization. No h/o DVT/ PE. Condition: Stable - Instructions Referrals: Esequiel Alexander MD [Primary Care Provider] - Disposition: HOME - Home Medications Comprehensive Discharge Medication List: Ambulatory Orders Albuterol Sulfate Inhaler - [Ventolin HFA Inhaler -] 1 - 2 inh PO Q4H PRN Aspirin 81 mg PO DAILY 09/24/13 Budesonide/Formeterol Fumarate [SYMBICORT 160/4.5mcg -] 2 inh PO BID 09/24/13 Ergocalciferol [Vitamin D2] 50,000 unit PO Q7D@1000 09/24/13 Fenofibrate [Lipofen] 105 mg PO DAILY 09/24/13 Furosemide [Lasix -] 40 mg PO BID 09/24/13 Losartan Potassium [Cozaar -] 25 mg PO DAILY 09/24/13 Mometasone Furoate [Nasonex] 1 - 2 inh NS DAILY 09/24/13 Niacin [Niaspan] 750 mg PO DAILY 09/24/13 Rosuvastatin [Crestor -] 40 mg PO DAILY 09/24/13 Sitagliptin Phosphate [Januvia] 100 mg PO DAILY 09/24/13 Tiotropium [place] [Spiriva] 2 inh PO DAILY 09/24/13 Diltiazem Cd [Cardizem Cd -] 120 mg PO DAILY #30 cap.cd.24h 02/16/15 Clopidogrel Bisulfate [Plavix -] 75 mg PO DAILY 11/22/16 Insulin Glargine,Hum.rec.anlog [[place]o Solostar] 80 unit SQ HS 11/22/16 Ranolazine [Ranexa -] 1,000 mg PO BID 11/22/16 Roflumilast [Daliresp] 500 mcg PO DAILY 11/22/16 Dulaglutide [Trulicity] 1.5 mg SQ WEEKLY 10/13/17 Guaifenesin [Mucinex] 600 mg PO BID 10/13/17 Metoprolol Succinate [Toprol Xl] 25 mg PO DAILY 10/13/17 Mirabegron [Myrbetriq] 50 mg PO DAILY 10/13/17
--- NOTE | 2017-10-19 12:51 | PN ---
Progress Note (short form) - Note Progress Note: PULMONARY VSS/AFEBRILE OOB TO CHAIR WANTS TO GO HOME ANICTERIC MINIMAL EXP SCATTERED WHEEZE S1S2 BS+ OBESE NO EDEMA LABS/MEDS/IMAGES REVIEWED Acute COPD Exacerbation Upper Respiratory Infection CAD s/p stents HTN DM Hyperlipidemia GERD - prednisone taper as outpatient - inhaled bronchodilators - O2 as needed - DVT prophylaxis - patient has home o2 - agree with continuing treatment as an outpatient Nicolasa FLOYD MD
[2017-10-19] MEDS ORDERED: CEFTRIAXONE 1 G/50 ML PREMIX 50 ML IVPB SCH (13:22)
[2017-10-19 15:19] VITALS: BP 119/65; PULSE 81; TEMP 98
[2017-10-19] MEDS ORDERED: INSULIN (NOVOLOG) ASPART 100 UNITS/ML 10ML VIAL ONE (18:07)
== END 2017-10-19 18:20 | disposition home or self-care (01) | DRG 190 ==
LOC: JER 08:33 → JERBED 14:25 → J6S 16:28 → OBSVTOIN 19:15
PROVIDERS: ADMIT Family Medicine; ATTEND Family Medicine
DX: J44.1 Chronic obstructive pulmonary disease with (acute) exacerbation (principal); J18.9 Pneumonia, unspecified organism; I50.33 Acute on chronic diastolic (congestive) heart failure; J98.11 Atelectasis; E11.65 Type 2 diabetes mellitus with hyperglycemia; E66.01 Morbid (severe) obesity due to excess calories; I10 Essential (primary) hypertension; I25.10 Atherosclerotic heart disease of native coronary artery without angina pectoris; I25.2 Old myocardial infarction; Z95.5 Presence of coronary angioplasty implant and graft; K21.9 Gastro-esophageal reflux disease without esophagitis; E78.5 Hyperlipidemia, unspecified; Z79.4 Long term (current) use of insulin; Z68.33 Body mass index [BMI] 33.0-33.9, adult; J06.9 Acute upper respiratory infection, unspecified
CPT/HCPCS: 36415; 71046-TC; 71250-TC; 80053; 82550; 82553; 82947; 82962; 83036; 83880; 84484; 85025; 87420; 87804; 93005; 93010; 93306-TC; 94640; 97116-GP; 97161-GP; 99285-25; G0378; J1644

== ENCOUNTER → 2019-02-18 | Day surgery (SDC) | payer OTHER ==
--- NOTE | 2019-02-19 17:13 | PATH ---
Cytology Non-Gynecological Report Patient Name: NATIVIDAD MEADE [facility]. Rec. #: [id number] /Age/Gender: 1940 (Age: 79) / F Account: [id number] Location: RADIOLOGY INTER Taken: 02/18/2019 Received: 02/18/2019 Reported: 02/19/2019 Physicians: Ko Taylor M.D. Specimen(s) Received LEFT THYROID FNA Clinical History Left thyroid lobe, 2.45 x 1.82 x 1.71 cm Final Diagnosis THYROID, LEFT, FINE NEEDLE ASPIRATION: SATISFACTORY FOR EVALUATION. BETHESDA CLASS II: BENIGN. CYTOLOGIC FINDINGS ARE CONSISTENT WITH A BENIGN FOLLICULAR NODULE WITH CYSTIC CHANGE. SMALL FOLLICULAR CELLS DISPERSED MACROFOLLICLES AND SHEETS IN A BACKGROUND OF ABUNDANT COLLOID, AND FEW MACROPHAGES PRESENT. Electronically Signed Radha Carvajal M.D. Gross Description Received are eight direct smears, four of which are air-dried and Diff-Quik stained, and four of which are alcohol fixed and Pap stained. Also received is 20 ml of bloody formalin from which one cellblock is prepared.
== END | disposition home or self-care (01) ==
LOC: JRADIR 09:21
PROVIDERS: ATTEND Internal Medicine Endocrinology, Diabetes & Metabolism
PROC: 0G9G3ZX Drainage of Left Thyroid Gland Lobe, Percutaneous Approach, Diagnostic (ICD-10-PCS; principal; 2019-02-18)
DX: E04.1 Nontoxic single thyroid nodule (principal)
CPT/HCPCS: 76942; 88173; 88305-TC

== ENCOUNTER 2021-01-13 09:13 | Inpatient (IN) | payer MEDICARE, OTHER ==
[2021-01-13 09:42] VITALS: BMI 38.6
[2021-01-13] MEDS ORDERED: morphine CARPU-JECT 4 MG/1 ML DISP.SYRIN IVPUSH ONE ×2 (10:28→18:30)
[2021-01-13] MEDS ORDERED: ONDANSETRON 4 MG/2 ML VIAL IVPB ONE (10:56)
[2021-01-13] MEDS ORDERED: MORPHINE SULFATE 2 MG/ML VIAL ONE ×2 (10:59→18:41)
[2021-01-13] MEDS ORDERED: ONDANSETRON 4 MG/2 ML VIAL ONE ×2 (10:59→17:40)
[2021-01-13 11:01] LABS: BASO % 0.3 % (0-2.0); EOS % 0.3 % (0-4.5); HEMATOCRIT 40.9 % (32.4-45.2); LYMPH % 6.8 % (8-40); MCH 21.8 pg (25.7-33.7); MCHC 31.8 g/dl (32.0-36.0); MEAN CELL VOLUME 68.7 fl (80-96); MONO % 8.9 % (3.8-10.2); NEUT % 83.7 % (42.8-82.8); PLATELET COUNT 272 K/MM3 (134-434); RBC 5.95 M/mm3 (3.60-5.2); RDW 16.8 % (11.6-15.6); WHITE BLOOD COUNT 11.3 K/mm3 (4.0-10.0)
[2021-01-13 11:08] LABS: INR 1.08 (0.83-1.09); PROTHROMBIN TIME (PATIENT) 13.3 SEC (9.7-13.0)
[2021-01-13 11:11] LABS: ACTIVATED PTT 36.6 SECONDS (25.2-36.5)
[2021-01-13 11:21] LABS: CHLORIDE 102 mmol/L (98-107); SODIUM 135 mmol/L (136-145)
[2021-01-13 11:23] LABS: CALCIUM 9.7 mg/dL (8.5-10.1)
[2021-01-13 11:24] LABS: ALBUMIN 3.6 g/dl (3.4-5.0); BLOOD UREA NITROGEN 27.4 mg/dL (7-18); CO2 30 mmol/L (21-32); GLUCOSE,RANDOM 167 mg/dL (74-106)
[2021-01-13 11:27] LABS: CREATININE 1.3 mg/dL (0.55-1.3); SGOT/AST 46 U/L (15-37); SGPT/ALT 26 U/L (13-61)
[2021-01-13 11:28] LABS: BILIRUBIN,TOTAL 1.1 mg/dL (0.2-1)
[2021-01-13 11:29] LABS: TOT PROT 7.5 g/dl (6.4-8.2)
[2021-01-13 11:30] LABS: ALK PHOS 96 U/L (45-117); ANION GAP 3 MMOL/L (8-16)
[2021-01-13 12:32] LABS: BLOOD UREA NITROGEN 26.1 mg/dL (7-18); CALCIUM 9.7 mg/dL (8.5-10.1)
[2021-01-13 12:36] LABS: CREATININE 1.2 mg/dL (0.55-1.3)
[2021-01-13 12:57] LABS: ANISOCYTOSIS 1+; MACROCYTOSIS 0; OVALOCYTE 1+; PLATELET ESTIMATE NORMAL
[2021-01-13] MEDS ORDERED: LACTATED RINGERS SOLUTION 1,000 ML/1,000 ML INFUS.BAG IV STA (14:40)
[2021-01-13] MEDS ORDERED: ONDANSETRON 4 MG/2 ML VIAL IVPUSH ONE (16:12)
[2021-01-13] MEDS ORDERED: ALBUTEROL SO4 0.083% IH SOL 2.5 MG/3 ML VIAL.NEB. NEB PRN (17:45)
[2021-01-13] MEDS ORDERED: ALBUTEROL SO4 HFA INHALER IH PRN (18:05)
[2021-01-13] MEDS: PANTOPRAZOLE SODIUM 40 MG VIAL IVPUSH SCH (18:39)
[2021-01-13] MEDS: LACTATED RINGERS SOLUTION 1,000 ML IV SCH (18:39)
[2021-01-13] MEDS ORDERED: PANTOPRAZOLE SODIUM 40 MG/100 ML BAG IVPB ONE (18:42)
[2021-01-13] MEDS ORDERED: ROSUVASTATIN CA 40 MG TABLET PO SCH (22:00)
[2021-01-13] MEDS ORDERED: RANOLAZINE E.R. 1,000 MG TABLET (FP) PO SCH (22:00)
[2021-01-14] MEDS ORDERED: HEPARIN NA (PORCINE) 5,000 UNITS/ML 1ML VIAL ONE (00:46)
[2021-01-14] MEDS ORDERED: ROSUVASTATIN CA 20 MG TABLET (FP) PO SCH (00:56)
[2021-01-14] MEDS: INSULIN (NOVOLOG) ASPART 100 UNITS/ML 10ML VIAL SQ SCH ×4 (01:58→21:18)
[2021-01-14] MEDS: HEPARIN NA (PORCINE) 5,000 UNITS/ML 1ML VIAL SQ SCH ×4 (01:58→21:18)
[2021-01-14 08:06] LABS: BASO % 0.3 % (0-2.0); EOS % 0.8 % (0-4.5); HEMOGLOBIN 12.2 GM/dL (10.7-15.3); MCHC 32.1 g/dl (32.0-36.0); MEAN CELL VOLUME 68.4 fl (80-96); MEAN PLT VOLUME 8.1 fl (7.5-11.1); MONO % 10.1 % (3.8-10.2); NEUT % 69.8 % (42.8-82.8); PLATELET COUNT 240 K/MM3 (134-434); RBC 5.55 M/mm3 (3.60-5.2); RDW 16.9 % (11.6-15.6); WHITE BLOOD COUNT 7.6 K/mm3 (4.0-10.0)
[2021-01-14 08:16] LABS: ALBUMIN 3.3 g/dl (3.4-5.0); BLOOD UREA NITROGEN 16.2 mg/dL (7-18); CALCIUM 9.1 mg/dL (8.5-10.1)
[2021-01-14 08:20] LABS: BILIRUBIN,TOTAL 1.3 mg/dL (0.2-1); TOT PROT 6.9 g/dl (6.4-8.2)
[2021-01-14] MEDS ORDERED: METOPROLOL TARTRATE 5 MG/5 ML VIAL IVPUSH PRN (09:11)
[2021-01-14] MEDS ORDERED: PANTOPRAZOLE SODIUM 40 MG VIAL ONE (10:04)
[2021-01-14] MEDS: PANTOPRAZOLE SODIUM 40 MG VIAL IVPUSH SCH (10:11)
[2021-01-14] MEDS ORDERED: METOPROLOL TARTRATE 5 MG/5 ML VIAL IVPB PRN (12:18)
[2021-01-14] MEDS: LACTATED RINGERS SOLUTION 1,000 ML IV SCH ×2 (12:30→21:17)
[2021-01-14] MEDS ORDERED: PT OWN MED DRAWER 7, Y5N ONE ×2 (13:19→16:54)
[2021-01-14] MEDS: NITROGLYCERIN 2% OINTMENT - 1GM PACKET TD SCH ×3 (13:20→23:37)
[2021-01-14] MEDS ORDERED: ACETAMINOPHEN 1000 MG/100 ML VIAL (NON FORMULARY) IVPB ONE (23:43)
[2021-01-15 00:30] LABS: PH,URINE 5.5 (5.0-8.0); URINE APPEARANCE CLEAR; URINE BILIRUBIN NEGATIVE (NEGATIVE); URINE COLOR YELLOW; URINE GLUCOSE (UA) NEGATIVE (NEGATIVE); URINE KETONE 1+ (NEGATIVE); URINE LEUK ESTERASE NEGATIVE (NEGATIVE); URINE NITRITE NEGATIVE (NEGATIVE); URINE PROTEIN TRACE (NEGATIVE)
[2021-01-15] MEDS: INSULIN (NOVOLOG) ASPART 100 UNITS/ML 10ML VIAL SQ SCH ×4 (06:23→21:32)
[2021-01-15] MEDS: NITROGLYCERIN 2% OINTMENT - 1GM PACKET TD SCH ×3 (06:24→17:05)
[2021-01-15] MEDS: HEPARIN NA (PORCINE) 5,000 UNITS/ML 1ML VIAL SQ SCH ×3 (06:24→21:32)
[2021-01-15] MEDS ORDERED: DEXTROSE 50%-WATER - 25 GM/50 ML VIAL IVPUSH ONE (06:25)
[2021-01-15] MEDS ORDERED: DEXTROSE 50%-WATER 25 GM/50 ML DISP.SYRIN ONE (06:36)
[2021-01-15] MEDS: ALBUTEROL SO4 0.083% IH SOL 2.5 MG/3 ML VIAL.NEB. NEB SCH ×4 (07:30→21:52)
[2021-01-15 09:13] LABS: BASO % 0.4 % (0-2.0); EOS % 0.6 % (0-4.5); HEMATOCRIT 33.3 % (32.4-45.2); HEMOGLOBIN 10.8 GM/dL (10.7-15.3); LYMPH % 16.2 % (8-40); MCH 22.1 pg (25.7-33.7); MCHC 32.4 g/dl (32.0-36.0); MEAN CELL VOLUME 68.2 fl (80-96); MEAN PLT VOLUME 8.1 fl (7.5-11.1); MONO % 9.7 % (3.8-10.2); NEUT % 73.1 % (42.8-82.8); PLATELET COUNT 217 K/MM3 (134-434); RBC 4.88 M/mm3 (3.60-5.2); RDW 16.3 % (11.6-15.6); WHITE BLOOD COUNT 7.6 K/mm3 (4.0-10.0)
[2021-01-15 09:30] LABS: CALCIUM 8.8 mg/dL (8.5-10.1)
[2021-01-15 09:31] LABS: ALBUMIN 2.9 g/dl (3.4-5.0)
[2021-01-15 09:33] LABS: BLOOD UREA NITROGEN 12.7 mg/dL (7-18); CREATININE 0.8 mg/dL (0.55-1.3)
[2021-01-15 09:36] LABS: BILIRUBIN,TOTAL 1.1 mg/dL (0.2-1)
[2021-01-15] MEDS: PANTOPRAZOLE SODIUM 40 MG VIAL IVPUSH SCH (10:37)
[2021-01-15] MEDS: LACTATED RINGERS SOLUTION 1,000 ML IV SCH (17:05)
[2021-01-16] MEDS ORDERED: PT OWN MED DRAWER 7, Y5N ONE ×6 (00:16→17:19)
[2021-01-16] MEDS: LACTATED RINGERS SOLUTION 1,000 ML IV SCH ×2 (00:21→18:52)
[2021-01-16] MEDS: NITROGLYCERIN 2% OINTMENT - 1GM PACKET TD SCH ×4 (00:23→17:37)
[2021-01-16] MEDS: HEPARIN NA (PORCINE) 5,000 UNITS/ML 1ML VIAL SQ SCH ×3 (06:06→21:08)
[2021-01-16] MEDS: INSULIN (NOVOLOG) ASPART 100 UNITS/ML 10ML VIAL SQ SCH ×4 (06:18→21:12)
[2021-01-16] MEDS: ALBUTEROL SO4 0.083% IH SOL 2.5 MG/3 ML VIAL.NEB. NEB SCH ×4 (07:35→20:08)
[2021-01-16] MEDS: CLOPIDOGREL BISULFATE 75 MG TABLET (FP) PO SCH (10:32)
[2021-01-16] MEDS: PANTOPRAZOLE SODIUM 40 MG VIAL IVPUSH SCH (10:32)
[2021-01-16] MEDS: LOSARTAN POTASSIUM 25 MG TABLET PO SCH (10:32)
[2021-01-16] MEDS: EZETIMIBE 10 MG TABLET (FP) PO SCH (10:32)
[2021-01-16] MEDS: metoPROLOL SUCCINATE 25 MG TAB.SR.24H (FP) PO SCH (10:34)
[2021-01-16] MEDS: ROFLUMILAST 500 MCG TABLET PO SCH (12:49)
[2021-01-17] MEDS ORDERED: PT OWN MED DRAWER 7, Y5N ONE ×4 (01:11→11:51)
[2021-01-17] MEDS: NITROGLYCERIN 2% OINTMENT - 1GM PACKET TD SCH ×2 (01:13→06:11)
[2021-01-17] MEDS ORDERED: ACETAMINOPHEN 325 MG TABLET (FP) PO ONE (05:06)
[2021-01-17] MEDS: HEPARIN NA (PORCINE) 5,000 UNITS/ML 1ML VIAL SQ SCH ×2 (06:11→14:09)
[2021-01-17] MEDS: INSULIN (NOVOLOG) ASPART 100 UNITS/ML 10ML VIAL SQ SCH ×3 (06:17→17:15)
[2021-01-17] MEDS: ALBUTEROL SO4 0.083% IH SOL 2.5 MG/3 ML VIAL.NEB. NEB SCH ×3 (08:40→17:40)
[2021-01-17] MEDS: ROFLUMILAST 500 MCG TABLET PO SCH (09:44)
[2021-01-17] MEDS: metoPROLOL SUCCINATE 25 MG TAB.SR.24H (FP) PO SCH (09:44)
[2021-01-17] MEDS: CLOPIDOGREL BISULFATE 75 MG TABLET (FP) PO SCH (09:44)
[2021-01-17] MEDS: PANTOPRAZOLE SODIUM 40 MG VIAL IVPUSH SCH (09:44)
[2021-01-17] MEDS: LOSARTAN POTASSIUM 25 MG TABLET PO SCH (09:44)
[2021-01-17] MEDS: EZETIMIBE 10 MG TABLET (FP) PO SCH (09:45)
[2021-01-17] MEDS ORDERED: PANTOPRAZOLE 40 MG TABLET PO SCH (10:00)
[2021-01-17 13:43] VITALS: BP 109/61; PULSE 80; TEMP 98.2
== END 2021-01-17 19:06 | disposition home or self-care (01) | DRG 389 ==
LOC: JER 09:13 → JERBED 14:53 → J6S 01-14 11:34
PROVIDERS: ADMIT Family Medicine; ATTEND Family Medicine
PROC: 0D9670Z Drainage of Stomach with Drainage Device, Via Natural or Artificial Opening (ICD-10-PCS; principal; 2021-01-14)
PROC: 0DP6X0Z Removal of Drainage Device from Stomach, External Approach (ICD-10-PCS; 2021-01-17)
DX: K56.600 Partial intestinal obstruction, unspecified as to cause (principal); K43.6 Other and unspecified ventral hernia with obstruction, without gangrene; I25.10 Atherosclerotic heart disease of native coronary artery without angina pectoris; I25.2 Old myocardial infarction; J44.9 Chronic obstructive pulmonary disease, unspecified; E11.9 Type 2 diabetes mellitus without complications; E78.5 Hyperlipidemia, unspecified; Z79.4 Long term (current) use of insulin; E66.01 Morbid (severe) obesity due to excess calories; K43.9 Ventral hernia without obstruction or gangrene; Z68.31 Body mass index [BMI] 31.0-31.9, adult; I11.0 Hypertensive heart disease with heart failure; I50.9 Heart failure, unspecified
CPT/HCPCS: 36415; 71045-TC-FY; 74018-TC-FY; 74176-TC; 74177-TC; 80048; 80053; 81003; 82962; 83036; 83605; 83690; 84443; 85025; 85610; 85730; 86900; 87086; 93005; 93010; 94640; 97116-GP; 99285-25; C9803; J0131; J1644; Q9967; U0003; U0005

== ENCOUNTER 2021-01-24 22:31 | Emergency (ER) | payer MEDICARE, OTHER ==
[2021-01-24 23:19] VITALS: BMI 34.0
[2021-01-24] MEDS ORDERED: ACETAMINOPHEN 325 MG TABLET (FP) PO ONE (23:43)
[2021-01-24] MEDS ORDERED: KETOROLAC TROMETHAMINE 30 MG/1 ML VIAL IM ONE (23:43)
[2021-01-24] MEDS ORDERED: ACETAMINOPHEN 325 MG TABLET (FP) ONE (23:52)
[2021-01-24] MEDS ORDERED: KETOROLAC TROMETHAMINE 30 MG/1 ML VIAL ONE (23:52)
[2021-01-25 00:45] LABS: URINE APPEARANCE CLOUDY; URINE BILIRUBIN NEGATIVE (NEGATIVE); URINE COLOR YELLOW; URINE GLUCOSE (UA) NEGATIVE (NEGATIVE); URINE KETONE NEGATIVE (NEGATIVE); URINE LEUK ESTERASE NEGATIVE (NEGATIVE); URINE NITRITE NEGATIVE (NEGATIVE); URINE PROTEIN TRACE (NEGATIVE); URINE UROBILINOGEN 0.2 mg/dL (0.2-1.0)
[2021-01-25 01:11] VITALS: BP 132/67; PULSE 71; TEMP 97.7
== END 2021-01-25 01:17 | disposition home or self-care (01) ==
LOC: JER 22:31
PROC: 3E0233Z Introduction of Anti-inflammatory into Muscle, Percutaneous Approach (ICD-10-PCS; principal; 2021-01-24)
DX: M54.31 Sciatica, right side (principal)
CPT/HCPCS: 81003; 99284-25

== ENCOUNTER 2021-01-29 02:03 | Inpatient (IN) | payer MEDICARE, OTHER ==
[2021-01-29] MEDS ORDERED: ONDANSETRON 4 MG/2 ML VIAL IVPB ONE (02:47)
[2021-01-29] MEDS ORDERED: ACETAMINOPHEN 1000 MG/100 ML VIAL (NON FORMULARY) IVPB ONE ×2 (02:47→09:08)
[2021-01-29 03:27] LABS: BASO % 0.4 % (0-2.0); EOS % 0.4 % (0-4.5); HEMATOCRIT 40.1 % (32.4-45.2); HEMOGLOBIN 12.7 GM/dL (10.7-15.3); LYMPH % 10.1 % (8-40); MCH 21.9 pg (25.7-33.7); MCHC 31.8 g/dl (32.0-36.0); MEAN CELL VOLUME 68.8 fl (80-96); MONO % 7.2 % (3.8-10.2); NEUT % 81.9 % (42.8-82.8); PLATELET COUNT 291 K/MM3 (134-434); RBC 5.82 M/mm3 (3.60-5.2); WHITE BLOOD COUNT 9.4 K/mm3 (4.0-10.0)
[2021-01-29 03:47] LABS: CHLORIDE 101 mmol/L (98-107); SODIUM 136 mmol/L (136-145)
[2021-01-29 03:49] LABS: ANION GAP 6 MMOL/L (8-16); BLOOD UREA NITROGEN 27.2 mg/dL (7-18); CO2 29 mmol/L (21-32); GLUCOSE,RANDOM 172 mg/dL (74-106)
[2021-01-29 03:50] LABS: LIPASE 253 U/L (73-393)
[2021-01-29 03:52] LABS: CREATININE 1.2 mg/dL (0.55-1.3); SGOT/AST 40 U/L (15-37); SGPT/ALT 23 U/L (13-61)
[2021-01-29 03:54] LABS: TOT PROT 7.5 g/dl (6.4-8.2)
[2021-01-29 03:55] LABS: ALK PHOS 97 U/L (45-117)
[2021-01-29 04:06] LABS: ALBUMIN 3.6 g/dl (3.4-5.0); CALCIUM 10.5 mg/dL (8.5-10.1)
[2021-01-29] MEDS ORDERED: ONDANSETRON 4 MG/2 ML VIAL ONE (05:14)
[2021-01-29] MEDS ORDERED: ACETAMINOPHEN INJECTION 100 ML IVPB ONE (05:14)
[2021-01-29] MEDS ORDERED: morphine CARPU-JECT 2 MG/1 ML DISP.SYRIN IVPUSH ONE (05:49)
[2021-01-29] MEDS ORDERED: MORPHINE SULFATE 2 MG/ML VIAL ONE (05:55)
[2021-01-29] MEDS: DEXTROSE 5%-0.45% SALINE 1,000 ML IV SCH (05:58)
[2021-01-29 06:20] LABS: INR 1.12 (0.83-1.09); PROTHROMBIN TIME (PATIENT) 13.5 SEC (9.7-13.0)
[2021-01-29 06:22] LABS: ACTIVATED PTT 39.8 SECONDS (25.2-36.5)
[2021-01-29] MEDS ORDERED: LIDOCAINE VISCOUS 2% ORAL/TOP 20 ML UNIT-DOSE CUP MM ONE (06:29)
[2021-01-29] MEDS ORDERED: LIDOCAINE VISCOUS 2% ORAL/TOP 20 ML UNIT-DOSE CUP ONE (06:30)
[2021-01-29 08:48] LABS: ANISOCYTOSIS 1+; MACROCYTOSIS 0; OVALOCYTE 1+; PLATELET ESTIMATE NORMAL
[2021-01-29] MEDS ORDERED: SODIUM CHLORIDE 0.9% 500 ML INFUS.BAG IV ONE (09:11)
[2021-01-29] MEDS ORDERED: ALBUTEROL SO4 0.083% IH SOL 2.5 MG/3 ML VIAL.NEB. NEB PRN (10:41)
[2021-01-29 17:17] LABS: HEMOGLOBIN 10.8 GM/dL (10.7-15.3); MCH 22.1 pg (25.7-33.7); MCHC 31.7 g/dl (32.0-36.0); MEAN CELL VOLUME 69.5 fl (80-96); MEAN PLT VOLUME 7.9 fl (7.5-11.1); PLATELET COUNT 243 K/MM3 (134-434); RBC 4.89 M/mm3 (3.60-5.2); RDW 16.7 % (11.6-15.6); WHITE BLOOD COUNT 5.4 K/mm3 (4.0-10.0)
[2021-01-29 17:40] LABS: ALBUMIN 2.9 g/dl (3.4-5.0); CALCIUM 9.1 mg/dL (8.5-10.1)
[2021-01-29 17:41] LABS: BLOOD UREA NITROGEN 18.8 mg/dL (7-18)
[2021-01-29 17:44] LABS: CREATININE 0.8 mg/dL (0.55-1.3)
[2021-01-29 17:45] LABS: BILIRUBIN,TOTAL 0.9 mg/dL (0.2-1)
[2021-01-30] MEDS: DEXTROSE 5%-0.45% SALINE 1,000 ML IV SCH ×2 (08:24→19:49)
[2021-01-30 09:37] LABS: HEMOGLOBIN 11.7 GM/dL (10.7-15.3); MEAN CELL VOLUME 69.5 fl (80-96)
[2021-01-30 09:44] LABS: BASO % 0.3 % (0-2.0); EOS % 1.4 % (0-4.5); HEMATOCRIT 36.7 % (32.4-45.2); LYMPH % 22.6 % (8-40); MCHC 31.7 g/dl (32.0-36.0); MEAN PLT VOLUME 7.9 fl (7.5-11.1); MONO % 8.9 % (3.8-10.2); NEUT % 66.8 % (42.8-82.8); PLATELET COUNT 267 K/MM3 (134-434); RBC 5.29 M/mm3 (3.60-5.2); RDW 17.3 % (11.6-15.6); WHITE BLOOD COUNT 6.2 K/mm3 (4.0-10.0)
[2021-01-30 10:01] LABS: ALBUMIN 3.2 g/dl (3.4-5.0); CALCIUM 9.3 mg/dL (8.5-10.1); MAGNESIUM 2.2 mg/dL (1.8-2.4)
[2021-01-30 10:04] LABS: CREATININE 0.8 mg/dL (0.55-1.3)
[2021-01-30 10:06] LABS: BILIRUBIN,TOTAL 0.8 mg/dL (0.2-1); TOT PROT 6.7 g/dl (6.4-8.2)
[2021-01-30] MEDS: KETOROLAC TROMETHAMINE 15 MG/ML VIAL IVPUSH PRN (12:31)
[2021-01-30] MEDS ORDERED: METOPROLOL TARTRATE 5 MG/5 ML VIAL IVPB PRN (14:42)
[2021-01-30] MEDS: INSULIN SLIDING SCALE (NOVOLOG) 1 VIAL SQ SCH ×2 (17:08→21:16)
[2021-01-30] MEDS ORDERED: INSULIN (NOVOLOG) ASPART 100 UNITS/ML 10ML VIAL ONE (21:06)
[2021-01-30] MEDS: HEPARIN NA (PORCINE) 5,000 UNITS/ML 1ML VIAL SQ SCH (21:15)
[2021-01-31 02:16] LABS: URINE APPEARANCE CLEAR; URINE BILIRUBIN NEGATIVE (NEGATIVE); URINE COLOR YELLOW; URINE GLUCOSE (UA) NEGATIVE (NEGATIVE); URINE KETONE NEGATIVE (NEGATIVE); URINE LEUK ESTERASE NEGATIVE (NEGATIVE); URINE NITRITE NEGATIVE (NEGATIVE); URINE PROTEIN NEGATIVE (NEGATIVE); URINE UROBILINOGEN 0.2 mg/dL (0.2-1.0)
[2021-01-31] MEDS: KETOROLAC TROMETHAMINE 15 MG/ML VIAL IVPUSH PRN (05:44)
[2021-01-31] MEDS: DEXTROSE 5%-0.45% SALINE 1,000 ML IV SCH ×2 (05:46→21:46)
[2021-01-31] MEDS: INSULIN SLIDING SCALE (NOVOLOG) 1 VIAL SQ SCH ×3 (06:11→17:25)
[2021-01-31 09:18] LABS: HEMATOCRIT 32.8 % (32.4-45.2); HEMOGLOBIN 10.4 GM/dL (10.7-15.3); MCH 22.1 pg (25.7-33.7); MCHC 31.8 g/dl (32.0-36.0); MEAN CELL VOLUME 69.4 fl (80-96); PLATELET COUNT 222 K/MM3 (134-434); RBC 4.72 M/mm3 (3.60-5.2); RDW 16.9 % (11.6-15.6); WHITE BLOOD COUNT 4.3 K/mm3 (4.0-10.0)
[2021-01-31 09:28] LABS: CALCIUM 8.6 mg/dL (8.5-10.1)
[2021-01-31 09:29] LABS: ALBUMIN 2.7 g/dl (3.4-5.0); BLOOD UREA NITROGEN 7.6 mg/dL (7-18)
[2021-01-31 09:32] LABS: CREATININE 0.7 mg/dL (0.55-1.3)
[2021-01-31 09:34] LABS: BILIRUBIN,TOTAL 1.1 mg/dL (0.2-1); TOT PROT 5.7 g/dl (6.4-8.2)
[2021-01-31] MEDS ORDERED: REGADENOSON 0.4 MG/5 ML PRE-FILLED SYRINGE IVPUSH ONE ×2 (09:40→10:30)
[2021-01-31] MEDS: HEPARIN NA (PORCINE) 5,000 UNITS/ML 1ML VIAL SQ SCH ×2 (11:09→21:47)
[2021-01-31] MEDS ORDERED: ACETAMINOPHEN 325 MG TABLET (FP) PO PRN (15:58)
[2021-01-31] MEDS ORDERED: PT OWN MED DRAWER 7, Y5N ONE ×2 (19:43→21:41)
[2021-01-31] MEDS ORDERED: RANOLAZINE E.R. 500 MG TABLET (FP) ONE (21:40)
[2021-01-31] MEDS: ROSUVASTATIN CA 20 MG TABLET (FP) PO SCH (21:46)
[2021-01-31] MEDS: GABAPENTIN 400 MG CAPSULE PO SCH (21:46)
[2021-01-31] MEDS: RANOLAZINE E.R. 1,000 MG TABLET (FP) PO SCH (21:47)
[2021-02-01] MEDS: INSULIN SLIDING SCALE (NOVOLOG) 1 VIAL SQ SCH ×3 (06:15→17:56)
[2021-02-01] MEDS ORDERED: RANOLAZINE E.R. 500 MG TABLET (FP) ONE ×2 (10:30→20:59)
[2021-02-01] MEDS: metoPROLOL SUCCINATE 25 MG TAB.SR.24H (FP) PO SCH (11:00)
[2021-02-01] MEDS: PANTOPRAZOLE 40 MG TABLET PO SCH (11:00)
[2021-02-01] MEDS: EZETIMIBE 10 MG TABLET (FP) PO SCH (11:00)
[2021-02-01] MEDS: RANOLAZINE E.R. 1,000 MG TABLET (FP) PO SCH ×2 (11:00→21:04)
[2021-02-01] MEDS: HEPARIN NA (PORCINE) 5,000 UNITS/ML 1ML VIAL SQ SCH ×2 (11:00→21:04)
[2021-02-01] MEDS: LOSARTAN POTASSIUM 25 MG TABLET PO SCH (11:00)
[2021-02-01] MEDS: DEXTROSE 5%-0.45% SALINE 1,000 ML IV SCH ×2 (17:52→23:00)
[2021-02-01] MEDS ORDERED: PT OWN MED DRAWER 7, Y5N ONE (21:00)
[2021-02-01] MEDS: ROSUVASTATIN CA 20 MG TABLET (FP) PO SCH (21:04)
[2021-02-01] MEDS: GABAPENTIN 400 MG CAPSULE PO SCH (21:04)
[2021-02-02] MEDS: INSULIN SLIDING SCALE (NOVOLOG) 1 VIAL SQ SCH ×3 (06:01→17:28)
[2021-02-02] MEDS ORDERED: RANOLAZINE E.R. 500 MG TABLET (FP) ONE ×2 (09:13→22:27)
[2021-02-02] MEDS: PANTOPRAZOLE 40 MG TABLET PO SCH (09:34)
[2021-02-02] MEDS: LOSARTAN POTASSIUM 25 MG TABLET PO SCH (09:34)
[2021-02-02] MEDS: EZETIMIBE 10 MG TABLET (FP) PO SCH (09:34)
[2021-02-02] MEDS: RANOLAZINE E.R. 1,000 MG TABLET (FP) PO SCH ×2 (09:35→22:35)
[2021-02-02] MEDS: HEPARIN NA (PORCINE) 5,000 UNITS/ML 1ML VIAL SQ SCH ×2 (09:35→22:34)
[2021-02-02] MEDS: metoPROLOL SUCCINATE 25 MG TAB.SR.24H (FP) PO SCH (09:35)
[2021-02-02] MEDS: DEXTROSE 5%-0.45% SALINE 1,000 ML IV SCH (20:06)
[2021-02-02] MEDS ORDERED: PT OWN MED DRAWER 7, Y5N ONE (22:28)
[2021-02-02] MEDS: ROSUVASTATIN CA 20 MG TABLET (FP) PO SCH (22:36)
[2021-02-02] MEDS: GABAPENTIN 400 MG CAPSULE PO SCH (22:37)
[2021-02-03] MEDS ORDERED: PT OWN MED DRAWER 7, Y5N ONE ×2 (06:17→09:24)
[2021-02-03] MEDS: INSULIN SLIDING SCALE (NOVOLOG) 1 VIAL SQ SCH ×3 (06:52→16:32)
[2021-02-03] MEDS ORDERED: RANOLAZINE E.R. 500 MG TABLET (FP) ONE ×2 (09:24→22:10)
[2021-02-03] MEDS: metoPROLOL SUCCINATE 25 MG TAB.SR.24H (FP) PO SCH (09:25)
[2021-02-03] MEDS: LOSARTAN POTASSIUM 25 MG TABLET PO SCH (09:26)
[2021-02-03] MEDS: RANOLAZINE E.R. 1,000 MG TABLET (FP) PO SCH ×2 (09:26→22:13)
[2021-02-03] MEDS: HEPARIN NA (PORCINE) 5,000 UNITS/ML 1ML VIAL SQ SCH ×2 (09:26→22:12)
[2021-02-03] MEDS: PANTOPRAZOLE 40 MG TABLET PO SCH (09:26)
[2021-02-03] MEDS: EZETIMIBE 10 MG TABLET (FP) PO SCH (09:26)
[2021-02-03] MEDS: GABAPENTIN 100 MG CAPSULE PO SCH (14:21)
[2021-02-03] MEDS: DEXTROSE 5%-0.45% SALINE 1,000 ML IV SCH ×2 (17:01→22:09)
[2021-02-03] MEDS: ROSUVASTATIN CA 20 MG TABLET (FP) PO SCH (22:12)
[2021-02-03] MEDS: GABAPENTIN 400 MG CAPSULE PO SCH (22:15)
[2021-02-04] MEDS ORDERED: DEXMEDETOMIDINE HCL 200 MCG/2 ML IVPB ONE (06:31)
[2021-02-04] MEDS: INSULIN SLIDING SCALE (NOVOLOG) 1 VIAL SQ SCH ×2 (06:51→16:44)
[2021-02-04] MEDS ORDERED: MIDAZOLAM HCL 2 MG/2 ML SINGLE DOSE VIAL ONE ×2 (08:49)
[2021-02-04] MEDS: GABAPENTIN 100 MG CAPSULE PO SCH (08:50)
[2021-02-04] MEDS ORDERED: BUPIVACAINE LIPOSOME/PF (EXPAREL) 266 MG/20 ML VIAL ONE (08:50)
[2021-02-04] MEDS ORDERED: ceFAZolin SODIUM 1 GM VIAL ONE (11:19)
[2021-02-04] MEDS ORDERED: ceFAZolin SODIUM 1 GM VIAL IVPB ONE (11:21)
[2021-02-04] MEDS ORDERED: EPHEDRINE SULFATE/0.9% NACL/PF 50 MG/10 ML SYRINGE NR ONE ×2 (11:38→11:53)
[2021-02-04] MEDS ORDERED: SUCCINYLCHOLINE CHLORIDE 200 MG/10 ML SYRINGE ONE (11:53)
[2021-02-04] MEDS ORDERED: LIDOCAINE HCL/PF 2% SDV 5ML VIAL ONE (12:00)
[2021-02-04] MEDS ORDERED: oxyCODONE HCL 5 MG TABLET PO PRN (14:04)
[2021-02-04] MEDS ORDERED: ACETAMINOPHEN 325 MG TABLET (FP) PO PRN (14:04)
[2021-02-04] MEDS ORDERED: traMADol HCL 50 MG TABLET PO PRN (14:28)
[2021-02-04] MEDS: DEXTROSE 5%-0.45% SALINE 1,000 ML IV SCH (15:30)
[2021-02-04] MEDS ORDERED: RANOLAZINE E.R. 500 MG TABLET (FP) ONE (21:32)
[2021-02-04] MEDS: HEPARIN NA (PORCINE) 5,000 UNITS/ML 1ML VIAL SQ SCH (21:35)
[2021-02-04] MEDS: RANOLAZINE E.R. 1,000 MG TABLET (FP) PO SCH ×2 (21:35→22:05)
[2021-02-04] MEDS: ROSUVASTATIN CA 20 MG TABLET (FP) PO SCH ×2 (21:36→22:04)
[2021-02-04] MEDS: GABAPENTIN 400 MG CAPSULE PO SCH ×2 (21:36→22:04)
[2021-02-05] MEDS: INSULIN SLIDING SCALE (NOVOLOG) 1 VIAL SQ SCH ×3 (06:35→23:47)
[2021-02-05 08:36] LABS: CALCIUM 8.8 mg/dL (8.5-10.1)
[2021-02-05 08:37] LABS: BLOOD UREA NITROGEN 11.1 mg/dL (7-18)
[2021-02-05 08:39] LABS: BASO % 0.3 % (0-2.0); EOS % 0.6 % (0-4.5); HEMATOCRIT 34.6 % (32.4-45.2); HEMOGLOBIN 11.3 GM/dL (10.7-15.3); LYMPH % 14.4 % (8-40); MCH 22.3 pg (25.7-33.7); MCHC 32.6 g/dl (32.0-36.0); MEAN CELL VOLUME 68.4 fl (80-96); NEUT % 74.7 % (42.8-82.8); PLATELET COUNT 221 K/MM3 (134-434); RBC 5.06 M/mm3 (3.60-5.2); RDW 16.4 % (11.6-15.6); WHITE BLOOD COUNT 5.6 K/mm3 (4.0-10.0)
[2021-02-05 08:40] LABS: CREATININE 1.1 mg/dL (0.55-1.3)
[2021-02-05] MEDS ORDERED: PANTOPRAZOLE 40 MG TABLET PO SCH (10:00)
[2021-02-05] MEDS ORDERED: RANOLAZINE E.R. 500 MG TABLET (FP) ONE ×2 (10:15→23:37)
[2021-02-05] MEDS: HEPARIN NA (PORCINE) 5,000 UNITS/ML 1ML VIAL SQ SCH ×2 (11:05→23:39)
[2021-02-05] MEDS: LOSARTAN POTASSIUM 25 MG TABLET PO SCH (11:06)
[2021-02-05] MEDS: PANTOPRAZOLE SODIUM 40 MG VIAL IVPUSH SCH (11:06)
[2021-02-05] MEDS: GABAPENTIN 100 MG CAPSULE PO SCH ×2 (11:06→14:38)
[2021-02-05] MEDS: EZETIMIBE 10 MG TABLET (FP) PO SCH (11:07)
[2021-02-05] MEDS: RANOLAZINE E.R. 1,000 MG TABLET (FP) PO SCH ×2 (11:07→23:39)
[2021-02-05] MEDS: metoPROLOL SUCCINATE 25 MG TAB.SR.24H (FP) PO SCH (11:07)
[2021-02-05] MEDS ORDERED: ACETAMINOPHEN 325 MG TABLET (FP) PO PRN (16:36)
[2021-02-05 20:14] VITALS: BMI 33.7
[2021-02-05] MEDS: ROSUVASTATIN CA 20 MG TABLET (FP) PO SCH (23:39)
[2021-02-05] MEDS: GABAPENTIN 400 MG CAPSULE PO SCH (23:39)
[2021-02-05] MEDS: DEXTROSE 5%-0.45% SALINE 1,000 ML IV SCH (23:46)
[2021-02-06] MEDS ORDERED: RANOLAZINE E.R. 500 MG TABLET (FP) ONE ×2 (08:52→20:32)
[2021-02-06] MEDS: INSULIN SLIDING SCALE (NOVOLOG) 1 VIAL SQ SCH ×2 (09:10→11:17)
[2021-02-06] MEDS: metoPROLOL SUCCINATE 25 MG TAB.SR.24H (FP) PO SCH (09:12)
[2021-02-06] MEDS: PANTOPRAZOLE SODIUM 40 MG VIAL IVPUSH SCH (09:12)
[2021-02-06] MEDS: GABAPENTIN 100 MG CAPSULE PO SCH ×2 (09:12→14:33)
[2021-02-06] MEDS: RANOLAZINE E.R. 1,000 MG TABLET (FP) PO SCH ×2 (09:12→21:05)
[2021-02-06] MEDS: LOSARTAN POTASSIUM 25 MG TABLET PO SCH (09:12)
[2021-02-06] MEDS: HEPARIN NA (PORCINE) 5,000 UNITS/ML 1ML VIAL SQ SCH ×2 (09:12→21:04)
[2021-02-06] MEDS: EZETIMIBE 10 MG TABLET (FP) PO SCH (09:12)
[2021-02-06] MEDS ORDERED: MINERAL OIL ENEMA 133 ML ENEMA PR ONE (11:25)
[2021-02-06] MEDS: DEXTROSE 5%-0.45% SALINE 1,000 ML IV SCH (14:33)
[2021-02-06] MEDS: GABAPENTIN 400 MG CAPSULE PO SCH (21:04)
[2021-02-06] MEDS: ROSUVASTATIN CA 20 MG TABLET (FP) PO SCH (21:05)
[2021-02-07] MEDS: INSULIN SLIDING SCALE (NOVOLOG) 1 VIAL SQ SCH ×3 (07:08→11:21)
[2021-02-07] MEDS: HEPARIN NA (PORCINE) 5,000 UNITS/ML 1ML VIAL SQ SCH ×2 (08:10→22:09)
[2021-02-07] MEDS: GABAPENTIN 100 MG CAPSULE PO SCH ×2 (08:32→14:24)
[2021-02-07] MEDS ORDERED: RANOLAZINE E.R. 500 MG TABLET (FP) ONE ×2 (08:34→20:42)
[2021-02-07] MEDS: metoPROLOL SUCCINATE 25 MG TAB.SR.24H (FP) PO SCH (11:30)
[2021-02-07] MEDS: RANOLAZINE E.R. 1,000 MG TABLET (FP) PO SCH ×2 (11:31→22:15)
[2021-02-07] MEDS: PANTOPRAZOLE SODIUM 40 MG VIAL IVPUSH SCH (11:32)
[2021-02-07] MEDS: LOSARTAN POTASSIUM 25 MG TABLET PO SCH (11:32)
[2021-02-07] MEDS: EZETIMIBE 10 MG TABLET (FP) PO SCH (11:32)
[2021-02-07] MEDS: DEXTROSE 5%-0.45% SALINE 1,000 ML IV SCH (14:24)
[2021-02-07] MEDS ORDERED: TAMSULOSIN HCL 0.4 MG CAP PO ONE (20:45)
[2021-02-07] MEDS: ROSUVASTATIN CA 20 MG TABLET (FP) PO SCH (22:13)
[2021-02-07] MEDS: CLOPIDOGREL BISULFATE 75 MG TABLET (FP) PO SCH (22:13)
[2021-02-07] MEDS: GABAPENTIN 400 MG CAPSULE PO SCH (22:14)
[2021-02-07] MEDS: ASPIRIN 81 MG CHEWABLE TABLETS PO SCH (22:14)
[2021-02-07] MEDS ORDERED: PT OWN MED DRAWER 7, Y5N ONE (22:24)
[2021-02-08] MEDS: INSULIN SLIDING SCALE (NOVOLOG) 1 VIAL SQ SCH ×2 (06:41→12:03)
[2021-02-08] MEDS ORDERED: TAMSULOSIN HCL 0.4 MG CAP PO SCH (08:30)
[2021-02-08 08:55] VITALS: BP 104/54; PULSE 68; TEMP 98
[2021-02-08] MEDS ORDERED: RANOLAZINE E.R. 500 MG TABLET (FP) ONE (09:28)
[2021-02-08] MEDS: PANTOPRAZOLE SODIUM 40 MG VIAL IVPUSH SCH (10:04)
[2021-02-08] MEDS: ASPIRIN 81 MG CHEWABLE TABLETS PO SCH (10:04)
[2021-02-08] MEDS: GABAPENTIN 100 MG CAPSULE PO SCH ×2 (10:04→13:40)
[2021-02-08] MEDS: CLOPIDOGREL BISULFATE 75 MG TABLET (FP) PO SCH (10:04)
[2021-02-08] MEDS: metoPROLOL SUCCINATE 25 MG TAB.SR.24H (FP) PO SCH (10:05)
[2021-02-08] MEDS: RANOLAZINE E.R. 1,000 MG TABLET (FP) PO SCH (10:06)
[2021-02-08] MEDS: LOSARTAN POTASSIUM 25 MG TABLET PO SCH (10:07)
[2021-02-08] MEDS: HEPARIN NA (PORCINE) 5,000 UNITS/ML 1ML VIAL SQ SCH (10:07)
[2021-02-08] MEDS: EZETIMIBE 10 MG TABLET (FP) PO SCH (10:07)
== END 2021-02-08 14:38 | disposition home health service (06) | DRG 336 ==
LOC: JER 02:03 → JERBED 06:19 → J5S 11:09 → J4W 02-04 14:49
PROVIDERS: ADMIT Family Medicine; ATTEND Family Medicine
PROC: 0D9670Z Drainage of Stomach with Drainage Device, Via Natural or Artificial Opening (ICD-10-PCS; 2021-01-29)
PROC: 0WUF0JZ Supplement Abdominal Wall with Synthetic Substitute, Open Approach (ICD-10-PCS; 2021-02-04)
PROC: 0DNU0ZZ Release Omentum, Open Approach (ICD-10-PCS; 2021-02-04)
PROC: 0DN80ZZ Release Small Intestine, Open Approach (ICD-10-PCS; principal; 2021-02-04 09:30)
DX: K43.6 Other and unspecified ventral hernia with obstruction, without gangrene (principal); K56.600 Partial intestinal obstruction, unspecified as to cause; K91.89 Other postprocedural complications and disorders of digestive system; I97.191 Other postprocedural cardiac functional disturbances following other surgery; K56.7 Ileus, unspecified; Y83.9 Surgical procedure, unspecified as the cause of abnormal reaction of the patient, or of later complication, without mention of misadventure at the time of the procedure; R11.2 Nausea with vomiting, unspecified; J44.9 Chronic obstructive pulmonary disease, unspecified; I10 Essential (primary) hypertension; E11.9 Type 2 diabetes mellitus without complications; E78.5 Hyperlipidemia, unspecified; G47.33 Obstructive sleep apnea (adult) (pediatric); R33.9 Retention of urine, unspecified; E87.6 Hypokalemia; I25.119 Atherosclerotic heart disease of native coronary artery with unspecified angina pectoris; Z95.5 Presence of coronary angioplasty implant and graft; E66.9 Obesity, unspecified; Z68.33 Body mass index [BMI] 33.0-33.9, adult; K21.9 Gastro-esophageal reflux disease without esophagitis; I95.9 Hypotension, unspecified; K66.0 Peritoneal adhesions (postprocedural) (postinfection)
CPT/HCPCS: 36415; 71045-TC-FY; 74018-TC-FY; 74019-TC-FY; 74177-TC; 78452-TC; 80048; 80053; 81003; 82550; 82962; 83605; 83690; 83735; 84484; 85025; 85027; 85610; 85730; 86850; 86900; 86901; 87086; 88302-TC; 88304-TC; 93005; 93010; 93017; 93306-TC; 93970-TC; 94660; 94760; 97116-GP; 97161-GP; 99285-25; A9502; C9803; J0131; J1644; J2785; Q9967; U0003; U0005

== ENCOUNTER 2021-07-25 01:54 | Emergency (ER) | payer MEDICARE, OTHER ==
[2021-07-25 02:11] VITALS: TEMP 98.1; BMI 31.9
[2021-07-25 02:59] LABS: EOS % 2.5 % (0-4.5); HEMATOCRIT 34.7 % (32.4-45.2); HEMOGLOBIN 11.3 GM/dL (10.7-15.3); LYMPH % 29.7 % (8-40); MCH 21.7 pg (25.7-33.7); MCHC 32.5 g/dl (32.0-36.0); MEAN CELL VOLUME 66.5 fl (80-96); MEAN PLT VOLUME 7.4 fl (7.5-11.1); MONO % 11.8 % (3.8-10.2); PLATELET COUNT 249 10^3/uL (134-434); RBC 5.21 M/mm3 (3.60-5.2); RDW 15.4 % (11.6-15.6); WHITE BLOOD COUNT 6.6 K/mm3 (4.0-10.0)
[2021-07-25 03:18] LABS: CHLORIDE 104 mmol/L (98-107); SODIUM 139 mmol/L (136-145)
[2021-07-25 03:20] LABS: CALCIUM 8.8 mg/dL (8.5-10.1)
[2021-07-25 03:22] LABS: ALBUMIN 2.9 g/dl (3.4-5.0); ANION GAP 7 MMOL/L (8-16); BLOOD UREA NITROGEN 24.9 mg/dL (7-18); CO2 28 mmol/L (21-32); GLUCOSE,RANDOM 184 mg/dL (74-106)
[2021-07-25 03:24] LABS: CREATININE 1.2 mg/dL (0.55-1.3); SGOT/AST 15 U/L (15-37); SGPT/ALT 17 U/L (13-61)
[2021-07-25 03:25] LABS: BILIRUBIN,TOTAL 0.4 mg/dL (0.2-1); TOT PROT 6.8 g/dl (6.4-8.2)
[2021-07-25 03:28] LABS: ALK PHOS 120 U/L (45-117)
[2021-07-25] MEDS ORDERED: SUCRALFATE 1 GM TABLET (FP) PO ONE (04:53)
[2021-07-25] MEDS ORDERED: SUCRALFATE 1 GM TABLET (FP) ONE (04:56)
[2021-07-25 05:02] VITALS: BP 121/68; PULSE 80
== END 2021-07-25 05:54 | disposition home or self-care (01) ==
LOC: JER 01:54
DX: K21.9 Gastro-esophageal reflux disease without esophagitis (principal)
CPT/HCPCS: 36415; 71045-TC-FY; 80053; 82550; 84484; 85025; 93005; 93010; 99285-25; C9803; U0003; U0005

== ENCOUNTER 2021-10-22 12:11 | Inpatient (IN) | payer MEDICARE, OTHER ==
[2021-10-22 12:29] VITALS: BMI 32.5
[2021-10-22] MEDS ORDERED: MAG HYDROX/AL HYDROX/SIMETH 30 ML UNIT-DOSE CUP PO ONE (14:18)
[2021-10-22] MEDS ORDERED: FAMOTIDINE 20 MG/50 ML IVPB 20 MG/50 ML MG IVPB ONE ×2 (14:18→14:21)
[2021-10-22] MEDS ORDERED: SODIUM CHLORIDE 0.9% 500 ML INFUS.BAG IV ONE (14:18)
[2021-10-22] MEDS ORDERED: MAG HYDROX/AL HYDROX/SIMETH 30 ML UNIT-DOSE CUP ONE (14:21)
[2021-10-22] MEDS ORDERED: ONDANSETRON 4 MG/2 ML VIAL IVPUSH ONE (15:02)
[2021-10-22] MEDS ORDERED: ONDANSETRON 4 MG/2 ML VIAL ONE (15:03)
[2021-10-22 15:05] LABS: HEMOGLOBIN 12.9 GM/dL (10.7-15.3); MCH 21.9 pg (25.7-33.7); MCHC 31.5 g/dl (32.0-36.0); MEAN CELL VOLUME 69.7 fl (80-96); MEAN PLT VOLUME 7.3 fl (7.5-11.1); PLATELET COUNT 213 10^3/uL (134-434); RBC 5.88 M/mm3 (3.60-5.2); RDW 16.3 % (11.6-15.6)
[2021-10-22 15:16] LABS: WHITE BLOOD COUNT 1.8 K/mm3 (4.0-10.0)
[2021-10-22 15:21] LABS: CHLORIDE 96 mmol/L (98-107); SODIUM 134 mmol/L (136-145)
[2021-10-22 15:23] LABS: CALCIUM 9.3 mg/dL (8.5-10.1)
[2021-10-22 15:24] LABS: ALBUMIN 3.9 g/dl (3.4-5.0); ANION GAP 11 MMOL/L (8-16); BLOOD UREA NITROGEN 48.9 mg/dL (7-18); CO2 27 mmol/L (21-32); GLUCOSE,RANDOM 182 mg/dL (74-106); LIPASE 129 U/L (73-393)
[2021-10-22 15:27] LABS: CREATININE 2.9 mg/dL (0.55-1.3); SGOT/AST 19 U/L (15-37); SGPT/ALT 28 U/L (13-61)
[2021-10-22] MEDS ORDERED: LACTATED RINGERS SOLUTION 1000 ML INFUS.BAG IV ONE (15:27)
[2021-10-22 15:28] LABS: BILIRUBIN,TOTAL 0.6 mg/dL (0.2-1); TOT PROT 8.3 g/dl (6.4-8.2)
[2021-10-22 15:30] LABS: ALK PHOS 95 U/L (45-117)
[2021-10-22 16:20] LABS: ANISOCYTOSIS 2+; MACROCYTOSIS 0; PLATELET ESTIMATE NORMAL
[2021-10-22] MEDS ORDERED: ALBUTEROL SO4 0.083% IH SOL 2.5 MG/3 ML VIAL.NEB. NEB PRN (22:40)
[2021-10-22] MEDS: GABAPENTIN 400 MG CAPSULE PO SCH (22:50)
[2021-10-22] MEDS: DEXTROSE 5%-0.45% SALINE 1,000 ML IV SCH (23:30)
[2021-10-23] MEDS: CLOPIDOGREL BISULFATE 75 MG TABLET (FP) PO SCH (09:03)
[2021-10-23 11:19] LABS: HEMATOCRIT 39.5 % (32.4-45.2); HEMOGLOBIN 12.5 GM/dL (10.7-15.3); MCH 22.1 pg (25.7-33.7); MCHC 31.5 g/dl (32.0-36.0); MEAN PLT VOLUME 7.2 fl (7.5-11.1); PLATELET COUNT 167 10^3/uL (134-434); RBC 5.64 M/mm3 (3.60-5.2); RDW 17.2 % (11.6-15.6)
[2021-10-23 11:31] LABS: WHITE BLOOD COUNT 1.2 K/mm3 (4.0-10.0)
[2021-10-23 11:38] LABS: CALCIUM 8.5 mg/dL (8.5-10.1)
[2021-10-23 11:39] LABS: ALBUMIN 3.7 g/dl (3.4-5.0)
[2021-10-23 11:42] LABS: CREATININE 2.9 mg/dL (0.55-1.3)
[2021-10-23 11:44] LABS: BILIRUBIN,TOTAL 0.6 mg/dL (0.2-1); TOT PROT 7.8 g/dl (6.4-8.2)
[2021-10-23 12:59] LABS: ANISOCYTOSIS 3+; MACROCYTOSIS 0; PLATELET ESTIMATE NORMAL
[2021-10-23] MEDS ORDERED: POTASSIUM CHLORIDE TABS 20 MEQ TABLET.ER (FP) PO ONE (14:00)
[2021-10-23] MEDS: DEXTROSE 5%-0.45% SALINE 1,000 ML IV SCH (14:46)
[2021-10-23] MEDS: SODIUM CHLORIDE 0.45%/POT 20 MEQ/1,000 ML INFUS.BAG IV SCH (18:23)
[2021-10-23] MEDS: GABAPENTIN 400 MG CAPSULE PO SCH (21:18)
[2021-10-24] MEDS: SODIUM CHLORIDE 0.45%/POT 20 MEQ/1,000 ML INFUS.BAG IV SCH ×2 (06:38→22:18)
[2021-10-24] MEDS: CLOPIDOGREL BISULFATE 75 MG TABLET (FP) PO SCH (09:23)
[2021-10-24 12:27] LABS: HEMATOCRIT 38.9 % (32.4-45.2); HEMOGLOBIN 12.4 GM/dL (10.7-15.3); MCH 22.4 pg (25.7-33.7); MCHC 31.9 g/dl (32.0-36.0); MEAN CELL VOLUME 70.1 fl (80-96); MEAN PLT VOLUME 6.9 fl (7.5-11.1); PLATELET COUNT 138 10^3/uL (134-434); RBC 5.55 M/mm3 (3.60-5.2); RDW 16.7 % (11.6-15.6)
[2021-10-24 13:07] LABS: WHITE BLOOD COUNT 1.2 K/mm3 (4.0-10.0)
[2021-10-24 13:20] LABS: CALCIUM 8.5 mg/dL (8.5-10.1)
[2021-10-24 13:21] LABS: ALBUMIN 3.5 g/dl (3.4-5.0); BLOOD UREA NITROGEN 53.7 mg/dL (7-18)
[2021-10-24 13:24] LABS: CREATININE 1.9 mg/dL (0.55-1.3)
[2021-10-24 13:25] LABS: TOT PROT 7.5 g/dl (6.4-8.2)
[2021-10-24 13:26] LABS: BILIRUBIN,TOTAL 0.5 mg/dL (0.2-1)
[2021-10-24 13:27] LABS: EPI CELLS >36 /uL (0-25.1); HYALINE CASTS 1 /uL (0-3.1); PH,URINE 5.5 (5.0-8.0); URINE APPEARANCE CLOUDY; URINE BACTERIA 608 /uL (0-1359); URINE BILIRUBIN NEGATIVE (NEGATIVE); URINE COLOR YELLOW; URINE GLUCOSE (UA) NEGATIVE (NEGATIVE); URINE KETONE NEGATIVE (NEGATIVE); URINE LEUK ESTERASE 2+ (NEGATIVE); URINE NITRITE NEGATIVE (NEGATIVE); URINE PROTEIN 1+ (NEGATIVE); URINE UROBILINOGEN 0.2 mg/dL (0.2-1.0); URINE WBC 59 /uL (0-25.8)
[2021-10-24 13:28] LABS: URINE RBC 22.3 /uL (0-23.9)
[2021-10-24 13:29] LABS: ANISOCYTOSIS 1+; MACROCYTOSIS 0; OVALOCYTE 1+; PLATELET ESTIMATE DECREASED
[2021-10-24] MEDS ORDERED: PANTOPRAZOLE SODIUM 40 MG VIAL IVPUSH SCH (20:45)
[2021-10-24] MEDS: GABAPENTIN 400 MG CAPSULE PO SCH (22:18)
[2021-10-25] MEDS: ONDANSETRON 4 MG/2 ML VIAL IVPUSH PRN ×2 (08:14→13:48)
[2021-10-25 09:15] LABS: HEMATOCRIT 38.7 % (32.4-45.2); HEMOGLOBIN 12.1 GM/dL (10.7-15.3); MCH 21.8 pg (25.7-33.7); MCHC 31.3 g/dl (32.0-36.0); MEAN CELL VOLUME 69.6 fl (80-96); MEAN PLT VOLUME 7.1 fl (7.5-11.1); PLATELET COUNT 146 10^3/uL (134-434); RBC 5.56 M/mm3 (3.60-5.2); RDW 16.5 % (11.6-15.6)
[2021-10-25 09:21] LABS: WHITE BLOOD COUNT 1.5 K/mm3 (4.0-10.0)
[2021-10-25 09:23] LABS: AMYLASE 71 U/L (25-115); LIPASE 272 U/L (73-393)
[2021-10-25 09:25] LABS: ALBUMIN 3.4 g/dl (3.4-5.0); BLOOD UREA NITROGEN 39.7 mg/dL (7-18); CALCIUM 8.4 mg/dL (8.5-10.1)
[2021-10-25 09:26] LABS: MAGNESIUM 2.7 mg/dL (1.8-2.4)
[2021-10-25 09:28] LABS: CREATININE 1.6 mg/dL (0.55-1.3); PHOSPHOROUS 2.8 mg/dL (2.5-4.9)
[2021-10-25 09:31] LABS: BILIRUBIN,TOTAL 0.5 mg/dL (0.2-1); TOT PROT 7.3 g/dl (6.4-8.2)
[2021-10-25] MEDS: CLOPIDOGREL BISULFATE 75 MG TABLET (FP) PO SCH (09:31)
[2021-10-25] MEDS: PANTOPRAZOLE SODIUM 40 MG VIAL IVPB SCH (10:16)
[2021-10-25] MEDS ORDERED: SODIUM CHLORIDE 1,000 ML IV SCH (11:30)
[2021-10-25 12:38] LABS: ANISOCYTOSIS 1+; MACROCYTOSIS 0; PLATELET ESTIMATE DECREASED
[2021-10-25] MEDS: METOCLOPRAMIDE HCL INJECTION 10 MG/2 ML VIAL IVPB SCH ×2 (15:32→23:15)
[2021-10-25] MEDS: ONDANSETRON 4 MG/2 ML VIAL IVPB SCH ×2 (18:47→21:31)
[2021-10-25] MEDS: GABAPENTIN 400 MG CAPSULE PO SCH (21:30)
[2021-10-26] MEDS: ONDANSETRON 4 MG/2 ML VIAL IVPB SCH ×2 (02:05→05:32)
[2021-10-26] MEDS: METOCLOPRAMIDE HCL INJECTION 10 MG/2 ML VIAL IVPB SCH ×2 (06:23→14:57)
[2021-10-26] MEDS: CLOPIDOGREL BISULFATE 75 MG TABLET (FP) PO SCH (09:36)
[2021-10-26] MEDS: PANTOPRAZOLE SODIUM 40 MG VIAL IVPB SCH (09:36)
[2021-10-26] MEDS ORDERED: ONDANSETRON 4 MG/2 ML VIAL IVPB PRN (10:00)
[2021-10-26 10:30] LABS: HEMOGLOBIN 10.9 GM/dL (10.7-15.3); MCHC 31.1 g/dl (32.0-36.0); MEAN CELL VOLUME 70.6 fl (80-96); MEAN PLT VOLUME 6.9 fl (7.5-11.1); PLATELET COUNT 118 10^3/uL (134-434); RBC 4.96 M/mm3 (3.60-5.2); RDW 16.5 % (11.6-15.6)
[2021-10-26 11:08] LABS: CALCIUM 8.2 mg/dL (8.5-10.1)
[2021-10-26 11:09] LABS: ALBUMIN 2.9 g/dl (3.4-5.0); BLOOD UREA NITROGEN 23.4 mg/dL (7-18); MAGNESIUM 2.3 mg/dL (1.8-2.4); WHITE BLOOD COUNT 1.3 K/mm3 (4.0-10.0)
[2021-10-26 11:10] LABS: CREATININE 1.3 mg/dL (0.55-1.3); PHOSPHOROUS 2.1 mg/dL (2.5-4.9)
[2021-10-26 11:12] LABS: BILIRUBIN,TOTAL 0.5 mg/dL (0.2-1)
[2021-10-26 11:13] LABS: TOT PROT 6.3 g/dl (6.4-8.2)
[2021-10-26] MEDS: GABAPENTIN 400 MG CAPSULE PO SCH (21:23)
[2021-10-27] MEDS: METOCLOPRAMIDE HCL INJECTION 10 MG/2 ML VIAL IVPB SCH ×3 (06:24→16:15)
[2021-10-27 10:31] LABS: HEMATOCRIT 31.1 % (32.4-45.2); MCH 22.4 pg (25.7-33.7); MCHC 32.2 g/dl (32.0-36.0); MEAN CELL VOLUME 69.4 fl (80-96); MEAN PLT VOLUME 6.7 fl (7.5-11.1); PLATELET COUNT 90 10^3/uL (134-434); RBC 4.49 M/mm3 (3.60-5.2); RDW 16.9 % (11.6-15.6)
[2021-10-27 10:32] LABS: ALBUMIN 2.8 g/dl (3.4-5.0); BLOOD UREA NITROGEN 15.4 mg/dL (7-18); CALCIUM 7.9 mg/dL (8.5-10.1)
[2021-10-27 10:34] LABS: CREATININE 1.2 mg/dL (0.55-1.3); PHOSPHOROUS 1.7 mg/dL (2.5-4.9)
[2021-10-27 10:37] LABS: BILIRUBIN,TOTAL 0.4 mg/dL (0.2-1); TOT PROT 6.1 g/dl (6.4-8.2)
[2021-10-27 10:38] LABS: WHITE BLOOD COUNT 1.3 K/mm3 (4.0-10.0)
[2021-10-27] MEDS: CLOPIDOGREL BISULFATE 75 MG TABLET (FP) PO SCH (10:49)
[2021-10-27] MEDS: PANTOPRAZOLE SODIUM 40 MG VIAL IVPB SCH (10:49)
[2021-10-27 11:15] LABS: ANISOCYTOSIS 2+; PLATELET ESTIMATE DECREASED
[2021-10-27] MEDS: GABAPENTIN 400 MG CAPSULE PO SCH (21:58)
[2021-10-28] MEDS: METOCLOPRAMIDE HCL INJECTION 10 MG/2 ML VIAL IVPB SCH ×3 (00:41→14:20)
[2021-10-28] MEDS: CLOPIDOGREL BISULFATE 75 MG TABLET (FP) PO SCH (09:37)
[2021-10-28] MEDS ORDERED: PANTOPRAZOLE 40 MG TABLET PO SCH (10:00)
[2021-10-28 11:45] LABS: MCH 22.2 pg (25.7-33.7); MCHC 32.1 g/dl (32.0-36.0); MEAN CELL VOLUME 69.2 fl (80-96); MEAN PLT VOLUME 8.3 fl (7.5-11.1); PLATELET COUNT 94 10^3/uL (134-434); RBC 4.48 M/mm3 (3.60-5.2); RDW 16.5 % (11.6-15.6)
[2021-10-28 11:58] LABS: WHITE BLOOD COUNT 1.5 K/mm3 (4.0-10.0)
[2021-10-28 12:06] LABS: CALCIUM 8.2 mg/dL (8.5-10.1)
[2021-10-28 12:07] LABS: ALBUMIN 2.8 g/dl (3.4-5.0); BLOOD UREA NITROGEN 16.7 mg/dL (7-18)
[2021-10-28 12:10] LABS: CREATININE 1.1 mg/dL (0.55-1.3); TOT PROT 6.2 g/dl (6.4-8.2)
[2021-10-28 12:11] LABS: BILIRUBIN,TOTAL 0.9 mg/dL (0.2-1)
[2021-10-28 13:51] LABS: ANISOCYTOSIS 1+; MACROCYTOSIS 0; OVALOCYTE 1+; PLATELET ESTIMATE DECREASED; TEAR DROP CELLS 1+
[2021-10-28 14:09] VITALS: BP 143/79; PULSE 104; TEMP 98.4
== END 2021-10-28 14:27 | disposition home health service (06) | DRG 392 ==
LOC: JER 12:11 → JERBED 20:40 → J6S 22:19
PROVIDERS: ADMIT Internal Medicine; ATTEND Family Medicine
DX: R19.7 Diarrhea, unspecified (principal); N17.9 Acute kidney failure, unspecified; R11.2 Nausea with vomiting, unspecified; T45.1X5A Adverse effect of antineoplastic and immunosuppressive drugs, initial encounter; Y92.89 Other specified places as the place of occurrence of the external cause; C50.919 Malignant neoplasm of unspecified site of unspecified female breast; D72.819 Decreased white blood cell count, unspecified; J44.9 Chronic obstructive pulmonary disease, unspecified; K21.9 Gastro-esophageal reflux disease without esophagitis; R53.1 Weakness; I10 Essential (primary) hypertension; E11.9 Type 2 diabetes mellitus without complications; E78.5 Hyperlipidemia, unspecified; I25.10 Atherosclerotic heart disease of native coronary artery without angina pectoris; Z98.61 Coronary angioplasty status
CPT/HCPCS: 36415; 70450-TC; 71045-TC-FY; 71250-TC; 74176-TC; 76775-TC; 80048; 80053; 81003; 82150; 82550; 82570; 83605; 83690; 83735; 84100; 84300; 84484; 85025; 87040; 87045; 87046; 87177; 87209; 87324; 87449; 87804; 87807; 93005; 93010; 99285-25; C9803; J3480; U0003; U0005

== ENCOUNTER 2025-07-30 05:43 | Emergency (ER) | payer MEDICARE, OTHER ==
[2025-07-30 06:17] VITALS: TEMP 97.6; BMI 29.7
[2025-07-30] MEDS ORDERED: ACETAMINOPHEN 325 MG TABLET (FP) ONE (06:27)
[2025-07-30] MEDS: ACETAMINOPHEN 325 MG TABLET (FP) PO ONE (06:32)
[2025-07-30 07:30] VITALS: BP 117/69; PULSE 63; RESP 18
== END 2025-07-30 08:06 | disposition home or self-care (01) ==
LOC: JER 05:43
DX: S00.83XA Contusion of other part of head, initial encounter (principal); W01.198A Fall on same level from slipping, tripping and stumbling with subsequent striking against other object, initial encounter; Y92.000 Kitchen of unspecified non-institutional (private) residence as the place of occurrence of the external cause; Y93.01 Activity, walking, marching and hiking
CPT/HCPCS: 70450-TC; 72125-TC; 99284-25